=== PATIENT | female | born 1975 | race Caucasian/White ===

== ENCOUNTER 2016-06-11 15:08 | Inpatient (IN) | payer MEDICARE, OTHER ==
[~2016-06-11] VITALS: Ht 177.8 cm; Wt 126.6 kg
[2016-06-11] MEDS ORDERED: OXYC-522 PO (15:15)
[2016-06-11] MEDS ORDERED: PANT40TA25 PO (15:15)
[2016-06-11] MEDS ORDERED: VENL-53 PO (15:15)
[2016-06-11] MEDS ORDERED: LEVO100T4 PO (15:15)
[2016-06-11] MEDS ORDERED: SULF1TAB42 PO (15:18)
[2016-06-11] MEDS ORDERED: FURO40 PO (15:18)
[2016-06-11] MEDS ORDERED: NAPR375T4 PO (15:18)
[2016-06-11] MEDS ORDERED: FERR325T40 PO (15:18)
[2016-06-11 16:03] LABS: EOSINOPHILS % (AUTO) 5.5 % (1.0-6.0); HEMATOCRIT 36.2 % (36-46); HEMOGLOBIN 11.5 g/dL (12.0-16.0); LYMPHOCYTES # (AUTO) 0.9 K/uL (1.0-4.8); LYMPHOCYTES % (AUTO) 10.5 % (22.0-44.0); MEAN CORPUSCULAR HEMOGLOBIN 26.4 pg (26.0-34.0); MEAN CORPUSCULAR HGB CONC 31.6 G/dL (31.0-37.0); MEAN CORPUSCULAR VOLUME 84 fL (80-100); MONOCYTES # (AUTO) 0.5 K/uL (0.1-1.0); PLATELET COUNT (AUTO) 319 K/uL (150-450); RED BLOOD CELL COUNT(AUTO) 4.33 MIL/uL (4.00-5.20); RED CELL DISTRIBUTION WIDTH 16.5 % (11.5-14.5)
[2016-06-11 16:15] LABS: CALCIUM, TOTAL 8.6 mg/dL (8.8-10.5); CREATININE 1.06 mg/dL (0.60-1.30); POTASSIUM 4.3 mmol/L (3.5-5.1)
[2016-06-11 16:17] LABS: BILIRUBIN,TOTAL 0.2 mg/dL (0.1-1.0); TOTAL PROTEIN, SERUM 8.1 g/dL (6.4-8.2)
[2016-06-11] MEDS ORDERED: ACETAMINOPHEN 325 MG TABLET PO PRN ×2 (19:15)
[2016-06-11] MEDS ORDERED: ONDANSETRON HCL 4 MG/2 ML VIAL IVP ONE (19:15)
[2016-06-11] MEDS ORDERED: ONDANSETRON HCL 4 MG/2 ML VIAL PO PRN (19:15)
[2016-06-11] MEDS ORDERED: BISACODYL 10 MG RECTAL RECTAL SUPPOSITORY PR PRN (19:15)
[2016-06-11] MEDS ORDERED: ZOLPIDEM TARTRATE 5 MG TABLET PO PRN (19:15)
[2016-06-11] MEDS ORDERED: ONDANSETRON HCL 4 MG/2 ML VIAL IVP PRN (19:15)
[2016-06-11] MEDS ORDERED: 0.9% SODIUM CHLORIDE 10 ML SYRINGE IVP PRN (19:15)
[2016-06-11] MEDS ORDERED: VANCOMYCIN HCL 1 GM/D5% WATER 200 ML IV ONE (19:15)
[2016-06-11] MEDS ORDERED: MORPHINE SULFATE 4 MG/ML SYRINGE IVP ONE (19:15)
[2016-06-11] MEDS ORDERED: OxyCODONE HCL/ACETAMINOPHEN 10-325 MG TABLET PO PRN (19:30)
[2016-06-11] MEDS ORDERED: ONDANSETRON HCL 8 MG in DEXTROSE 5%-WATER 50 ML IV PRN (20:15)
[2016-06-11] MEDS ORDERED: SODIUM CHLORIDE 0.9% 250 ML IV ONE (20:30)
[2016-06-11 20:36] VITALS: BP 119/58
[2016-06-11] MEDS: FUROSEMIDE 40 MG TABLET PO SCH (21:22)
[2016-06-11] MEDS: DOCUSATE SODIUM 250 MG CAPSULE PO SCH (21:22)
[2016-06-11] MEDS ORDERED: VANCOMYCIN HCL 500 MG in DEXTROSE 5%-WATER 100 ML IV ONE (22:00)
[2016-06-11] MEDS: MORPHINE SULFATE 2 MG/ML SYRINGE IVP PRN (22:40)
[2016-06-11 23:36] VITALS: BP 105/58
[2016-06-12] MEDS: OxyCODONE HCL/ACETAMINOPHEN 5-325 MG TABLET PO PRN ×2 (01:37→05:45)
[2016-06-12 04:45] VITALS: BP 124/70
[2016-06-12] MEDS: LEVOTHYROXINE SODIUM 100 MCG TABLET PO SCH (05:45)
[2016-06-12 07:27] VITALS: BP 113/55
[2016-06-12] MEDS: VENLAFAXINE HCL 37.5 MG TABLET PO SCH (08:21)
[2016-06-12] MEDS: PANTOPRAZOLE SODIUM 40 MG DR TABLET PO SCH (08:21)
[2016-06-12] MEDS: FUROSEMIDE 40 MG TABLET PO SCH ×2 (08:21→20:00)
[2016-06-12] MEDS: DOCUSATE SODIUM 250 MG CAPSULE PO SCH ×2 (08:21→20:00)
[2016-06-12] MEDS: VANCOMYCIN HCL 1.25 GM in DEXTROSE 5%-WATER 250 ML IV SCH ×2 (08:21→20:00)
[2016-06-12] MEDS: MORPHINE SULFATE 2 MG/ML SYRINGE IVP PRN ×2 (08:49→17:24)
[2016-06-12 11:13] VITALS: BP 117/70
[2016-06-12 15:47] VITALS: BP 104/63
[2016-06-12 19:42] VITALS: BP 117/61
[2016-06-12 23:28] VITALS: BP 113/61
[2016-06-13] MEDS: OxyCODONE HCL/ACETAMINOPHEN 5-325 MG TABLET PO PRN ×5 (00:37→23:13)
[2016-06-13] MEDS: LEVOTHYROXINE SODIUM 100 MCG TABLET PO SCH (05:29)
[2016-06-13] MEDS: MORPHINE SULFATE 2 MG/ML SYRINGE IVP PRN (05:29)
[2016-06-13 05:37] VITALS: BP 118/64
[2016-06-13 07:00] LABS: CREATININE 1.03 mg/dL (0.60-1.30); POTASSIUM 3.9 mmol/L (3.5-5.1)
[2016-06-13 07:01] LABS: CALCIUM, TOTAL 8.3 mg/dL (8.8-10.5)
[2016-06-13 07:49] VITALS: BP 114/56
[2016-06-13] MEDS: VANCOMYCIN HCL 1.25 GM in DEXTROSE 5%-WATER 250 ML IV SCH ×2 (07:53→21:05)
[2016-06-13] MEDS: FUROSEMIDE 40 MG TABLET PO SCH ×2 (07:54→21:05)
[2016-06-13] MEDS: PANTOPRAZOLE SODIUM 40 MG DR TABLET PO SCH (07:54)
[2016-06-13] MEDS: DOCUSATE SODIUM 250 MG CAPSULE PO SCH ×2 (07:54→21:05)
[2016-06-13] MEDS: VENLAFAXINE HCL 37.5 MG TABLET PO SCH (07:54)
[2016-06-13 11:28] VITALS: BP 114/52
[2016-06-13 15:39] VITALS: BP 101/53
[2016-06-13 19:54] VITALS: BP 112/66
[2016-06-13] MEDS ORDERED: 0.9% SODIUM CHLORIDE 10 ML SYRINGE IVP PRN (23:00)
[2016-06-13 23:20] VITALS: BP 102/56
[2016-06-14 04:48] VITALS: BP 100/60
[2016-06-14] MEDS: OxyCODONE HCL/ACETAMINOPHEN 5-325 MG TABLET PO PRN ×2 (05:19→17:25)
[2016-06-14] MEDS: LEVOTHYROXINE SODIUM 100 MCG TABLET PO SCH (05:19)
[2016-06-14 07:44] VITALS: BP 113/51
[2016-06-14 08:20] LABS: CALCIUM, TOTAL 8.6 mg/dL (8.8-10.5); CREATININE 1.05 mg/dL (0.60-1.30)
[2016-06-14] MEDS: FUROSEMIDE 40 MG TABLET PO SCH (08:54)
[2016-06-14] MEDS: PANTOPRAZOLE SODIUM 40 MG DR TABLET PO SCH (08:54)
[2016-06-14] MEDS: DOCUSATE SODIUM 250 MG CAPSULE PO SCH (08:54)
[2016-06-14] MEDS: VENLAFAXINE HCL 37.5 MG TABLET PO SCH (08:54)
[2016-06-14] MEDS: VANCOMYCIN HCL 1.25 GM in DEXTROSE 5%-WATER 250 ML IV SCH (08:57)
[2016-06-14] MEDS ORDERED: VITAMINS A & D 60 GM OINTMENT TP SCH (09:00)
[2016-06-14 11:49] VITALS: BP 116/67
[2016-06-14] MEDS: MORPHINE SULFATE 2 MG/ML SYRINGE IVP PRN (14:28)
[2016-06-14 16:24] VITALS: BP 126/69
[2016-06-14] MEDS ORDERED: DOCU250C91 PO (17:36)
[2016-06-14] MEDS ORDERED: VANC1.252 IV (17:38)
[2016-06-14] MEDS ORDERED: [UNRECOGNIZED DRUG - CODE] TP (17:39)
[2016-06-14] MEDS ORDERED: ACET-784 PO (17:40)
[2016-06-14] MEDS ORDERED: BISA10S PR (17:41)
== END 2016-06-14 17:55 | DRG 603 ==
LOC: EMS 15:10 → 6N 19:45
PROVIDERS: ADMIT Internal Medicine; ATTEND Internal Medicine
DX: L03.116 Cellulitis of left lower limb (principal); E44.1 Mild protein-calorie malnutrition; L97.929 Non-pressure chronic ulcer of unspecified part of left lower leg with unspecified severity; L97.919 Non-pressure chronic ulcer of unspecified part of right lower leg with unspecified severity; Z68.41 Body mass index [BMI] 40.0-44.9, adult; L03.115 Cellulitis of right lower limb; B95.62 Methicillin resistant Staphylococcus aureus infection as the cause of diseases classified elsewhere; K74.60 Unspecified cirrhosis of liver; F32.9 Major depressive disorder, single episode, unspecified; I10 Essential (primary) hypertension; E03.9 Hypothyroidism, unspecified; E66.9 Obesity, unspecified; J45.909 Unspecified asthma, uncomplicated; D25.9 Leiomyoma of uterus, unspecified; K21.9 Gastro-esophageal reflux disease without esophagitis; I89.0 Lymphedema, not elsewhere classified; N20.9 Urinary calculus, unspecified; Z86.14 Personal history of Methicillin resistant Staphylococcus aureus infection; Z79.2 Long term (current) use of antibiotics; Z79.891 Long term (current) use of opiate analgesic; Z79.899 Other long term (current) drug therapy; Z83.3 Family history of diabetes mellitus; Z82.49 Family history of ischemic heart disease and other diseases of the circulatory system
CPT/HCPCS: 87081; 93970; 96365; 96375; 99285; J2270; J2405; J3370; J7050; J7060

== ENCOUNTER → 2017-01-30 | Outpatient (CLI) | payer MEDICARE, OTHER ==
[~2017-01-30] VITALS: Ht 177.8 cm; Wt 126.6 kg
[~2017-01-30] MED LIST: ACET-784 PO; ASCO500 PO; BACTDSB PO; CEPH500 PO; DOCU250C91 PO; FURO40 PO; LEVO100T4 PO; LEVO112T7 PO; LEVO250 PO; LIDOCAINE HCL 4% 50 ML SOLUTION TP ONE; NAPR-1193 PO; OXYC-522 PO; PANT40TA25 PO; POTA8TAB4 PO; SULF1TAB42 PO; VENL-53 PO; ZINC50TA2 PO; [UNRECOGNIZED DRUG - CODE] TP
[2017-01-30 10:47] VITALS: BP 139/72
== END | disposition home or self-care (01) ==
LOC: HBOWC 10:19
PROVIDERS: ATTEND Surgery Plastic and Reconstructive Surgery
DX: I87.2 Venous insufficiency (chronic) (peripheral) (principal); L97.821 Non-pressure chronic ulcer of other part of left lower leg limited to breakdown of skin; I89.0 Lymphedema, not elsewhere classified; E66.01 Morbid (severe) obesity due to excess calories; K21.9 Gastro-esophageal reflux disease without esophagitis; E03.9 Hypothyroidism, unspecified; Z86.14 Personal history of Methicillin resistant Staphylococcus aureus infection; Z68.42 Body mass index [BMI] 45.0-49.9, adult

== ENCOUNTER → 2017-02-06 | Outpatient (CLI) | payer MEDICARE, OTHER ==
[~2017-02-06] MED LIST changes: -DOCU250C91 PO; -LEVO100T4 PO; -LEVO250 PO; -LIDOCAINE HCL 4% 50 ML SOLUTION TP ONE; -OXYC-522 PO; -SULF1TAB42 PO; -[UNRECOGNIZED DRUG - CODE] TP
[2017-02-06 11:00] VITALS: BP 140/62
== END | disposition home or self-care (01) ==
LOC: HBOWC 10:52
PROVIDERS: ATTEND Surgery Plastic and Reconstructive Surgery
DX: I87.2 Venous insufficiency (chronic) (peripheral) (principal); L97.821 Non-pressure chronic ulcer of other part of left lower leg limited to breakdown of skin; I89.0 Lymphedema, not elsewhere classified; K21.9 Gastro-esophageal reflux disease without esophagitis; E03.8 Other specified hypothyroidism; I11.9 Hypertensive heart disease without heart failure; E66.01 Morbid (severe) obesity due to excess calories; J45.909 Unspecified asthma, uncomplicated; G89.4 Chronic pain syndrome; Z68.42 Body mass index [BMI] 45.0-49.9, adult
CPT/HCPCS: 97597

== ENCOUNTER → 2017-02-13 | Outpatient (CLI) | payer MEDICARE, OTHER ==
[~2017-02-13] MED LIST changes: +LIDOCAINE HCL 2% 5 ML JELLY TP ONE
[2017-02-13 11:30] VITALS: BP 141/71
== END | disposition home or self-care (01) ==
LOC: HBOWC 09:49
PROVIDERS: ATTEND Nurse Practitioner Adult Health
DX: I87.2 Venous insufficiency (chronic) (peripheral) (principal); L97.821 Non-pressure chronic ulcer of other part of left lower leg limited to breakdown of skin; I89.0 Lymphedema, not elsewhere classified; K21.9 Gastro-esophageal reflux disease without esophagitis; G89.29 Other chronic pain; I11.9 Hypertensive heart disease without heart failure; E03.8 Other specified hypothyroidism; J45.909 Unspecified asthma, uncomplicated; E66.01 Morbid (severe) obesity due to excess calories; Z68.42 Body mass index [BMI] 45.0-49.9, adult
CPT/HCPCS: 87070; 87077; 87186; 87205; G0463

== ENCOUNTER → 2017-02-22 | Outpatient (CLI) | payer MEDICARE, OTHER ==
[~2017-02-22] MED LIST changes: -LIDOCAINE HCL 2% 5 ML JELLY TP ONE
[2017-02-22 11:03] VITALS: BP 145/74
== END | disposition home or self-care (01) ==
LOC: HBOWC 10:29
PROVIDERS: ATTEND Internal Medicine
DX: S81.802D Unspecified open wound, left lower leg, subsequent encounter (principal); S81.801D Unspecified open wound, right lower leg, subsequent encounter; I87.2 Venous insufficiency (chronic) (peripheral); I89.0 Lymphedema, not elsewhere classified; K21.9 Gastro-esophageal reflux disease without esophagitis; I11.9 Hypertensive heart disease without heart failure; E03.8 Other specified hypothyroidism; J45.909 Unspecified asthma, uncomplicated; G89.4 Chronic pain syndrome; E66.01 Morbid (severe) obesity due to excess calories; Z68.42 Body mass index [BMI] 45.0-49.9, adult; X58.XXXD Exposure to other specified factors, subsequent encounter
CPT/HCPCS: 97597

== ENCOUNTER → 2017-03-01 | Outpatient (CLI) | payer MEDICARE, OTHER ==
[~2017-03-01] MED LIST changes: +LIDOCAINE HCL 2% 5 ML JELLY TP ONE
[2017-03-01 10:40] VITALS: BP 112/61
== END | disposition home or self-care (01) ==
LOC: HBOWC 09:28
PROVIDERS: ATTEND Internal Medicine
DX: S81.802D Unspecified open wound, left lower leg, subsequent encounter (principal); S81.801D Unspecified open wound, right lower leg, subsequent encounter; I87.2 Venous insufficiency (chronic) (peripheral); K21.9 Gastro-esophageal reflux disease without esophagitis; J45.909 Unspecified asthma, uncomplicated; E03.9 Hypothyroidism, unspecified; I89.0 Lymphedema, not elsewhere classified; E66.01 Morbid (severe) obesity due to excess calories; Z68.42 Body mass index [BMI] 45.0-49.9, adult; X58.XXXD Exposure to other specified factors, subsequent encounter
CPT/HCPCS: 97597

== ENCOUNTER → 2017-03-08 | Outpatient (CLI) | payer MEDICARE, OTHER ==
[2017-03-08 09:16] VITALS: BP 132/64
== END | disposition home or self-care (01) ==
LOC: HBOWC 08:55
PROVIDERS: ATTEND Internal Medicine
DX: S81.801D Unspecified open wound, right lower leg, subsequent encounter (principal); S81.802D Unspecified open wound, left lower leg, subsequent encounter; I87.2 Venous insufficiency (chronic) (peripheral); I89.0 Lymphedema, not elsewhere classified; K21.9 Gastro-esophageal reflux disease without esophagitis; E66.01 Morbid (severe) obesity due to excess calories; J45.909 Unspecified asthma, uncomplicated; I11.9 Hypertensive heart disease without heart failure; E03.8 Other specified hypothyroidism; G89.4 Chronic pain syndrome; Z68.42 Body mass index [BMI] 45.0-49.9, adult; Z86.14 Personal history of Methicillin resistant Staphylococcus aureus infection; X58.XXXD Exposure to other specified factors, subsequent encounter
CPT/HCPCS: 97597

== ENCOUNTER → 2017-03-29 | Outpatient (CLI) | payer MEDICARE, OTHER ==
[~2017-03-29] MED LIST changes: -LIDOCAINE HCL 2% 5 ML JELLY TP ONE; +LIDOCAINE HCL 4% 50 ML SOLUTION TP ONE
[2017-03-29 08:26] VITALS: BP 137/69
== END | disposition home or self-care (01) ==
LOC: HBOWC 07:34
PROVIDERS: ATTEND Internal Medicine
DX: S81.802D Unspecified open wound, left lower leg, subsequent encounter (principal); S81.801D Unspecified open wound, right lower leg, subsequent encounter; I87.2 Venous insufficiency (chronic) (peripheral); E66.01 Morbid (severe) obesity due to excess calories; K21.9 Gastro-esophageal reflux disease without esophagitis; I89.0 Lymphedema, not elsewhere classified; E03.8 Other specified hypothyroidism; J45.909 Unspecified asthma, uncomplicated; Z68.42 Body mass index [BMI] 45.0-49.9, adult; X58.XXXD Exposure to other specified factors, subsequent encounter
CPT/HCPCS: 87070; 87077; 87147; 87186; 87205; G0463

== ENCOUNTER → 2017-04-05 | Outpatient (CLI) | payer MEDICARE, OTHER ==
[~2017-04-05] MED LIST changes: +LIDOCAINE HCL 2% 5 ML JELLY TP ONE; -LIDOCAINE HCL 4% 50 ML SOLUTION TP ONE
[2017-04-05 09:08] VITALS: BP 123/64
== END | disposition home or self-care (01) ==
LOC: HBOWC 08:25
PROVIDERS: ATTEND Internal Medicine
DX: S81.801D Unspecified open wound, right lower leg, subsequent encounter (principal); S81.802D Unspecified open wound, left lower leg, subsequent encounter; I87.2 Venous insufficiency (chronic) (peripheral); I89.0 Lymphedema, not elsewhere classified; K21.9 Gastro-esophageal reflux disease without esophagitis; I11.0 Hypertensive heart disease with heart failure; I50.9 Heart failure, unspecified; E03.9 Hypothyroidism, unspecified; E66.01 Morbid (severe) obesity due to excess calories; J45.909 Unspecified asthma, uncomplicated; E03.8 Other specified hypothyroidism; Z68.42 Body mass index [BMI] 45.0-49.9, adult; X58.XXXD Exposure to other specified factors, subsequent encounter
CPT/HCPCS: 97597

== ENCOUNTER → 2017-04-12 | Outpatient (CLI) | payer MEDICARE, OTHER ==
[~2017-04-12] MED LIST changes: -LIDOCAINE HCL 2% 5 ML JELLY TP ONE
[2017-04-12 08:48] VITALS: BP 121/60
== END | disposition home or self-care (01) ==
LOC: HBOWC 08:17
PROVIDERS: ATTEND Internal Medicine
DX: S81.802D Unspecified open wound, left lower leg, subsequent encounter (principal); S81.801D Unspecified open wound, right lower leg, subsequent encounter; E66.01 Morbid (severe) obesity due to excess calories; I89.0 Lymphedema, not elsewhere classified; K21.9 Gastro-esophageal reflux disease without esophagitis; J45.909 Unspecified asthma, uncomplicated; E03.9 Hypothyroidism, unspecified; I11.0 Hypertensive heart disease with heart failure; I50.9 Heart failure, unspecified; I87.2 Venous insufficiency (chronic) (peripheral); Z68.42 Body mass index [BMI] 45.0-49.9, adult; X58.XXXD Exposure to other specified factors, subsequent encounter

== ENCOUNTER → 2017-04-26 | Outpatient (CLI) | payer MEDICARE, OTHER ==
[2017-04-26 10:14] VITALS: BP 145/62
== END | disposition home or self-care (01) ==
LOC: HBOWC 08:38
PROVIDERS: ATTEND Internal Medicine
DX: S81.802D Unspecified open wound, left lower leg, subsequent encounter (principal); S81.801D Unspecified open wound, right lower leg, subsequent encounter; I87.2 Venous insufficiency (chronic) (peripheral); I11.0 Hypertensive heart disease with heart failure; I50.9 Heart failure, unspecified; K21.9 Gastro-esophageal reflux disease without esophagitis; E03.9 Hypothyroidism, unspecified; I89.0 Lymphedema, not elsewhere classified; E66.01 Morbid (severe) obesity due to excess calories; J45.909 Unspecified asthma, uncomplicated; Z68.42 Body mass index [BMI] 45.0-49.9, adult; X58.XXXD Exposure to other specified factors, subsequent encounter

== ENCOUNTER → 2017-05-10 | Outpatient (CLI) | payer MEDICARE, OTHER ==
[2017-05-10 09:06] VITALS: BP 140/64
== END | disposition home or self-care (01) ==
LOC: HBOWC 08:36
PROVIDERS: ATTEND Internal Medicine
DX: S81.802D Unspecified open wound, left lower leg, subsequent encounter (principal); S81.801D Unspecified open wound, right lower leg, subsequent encounter; E66.01 Morbid (severe) obesity due to excess calories; K21.9 Gastro-esophageal reflux disease without esophagitis; I11.0 Hypertensive heart disease with heart failure; I50.9 Heart failure, unspecified; E03.9 Hypothyroidism, unspecified; J45.909 Unspecified asthma, uncomplicated; I87.2 Venous insufficiency (chronic) (peripheral); Z68.42 Body mass index [BMI] 45.0-49.9, adult; X58.XXXD Exposure to other specified factors, subsequent encounter

== ENCOUNTER → 2017-05-24 | Outpatient (CLI) | payer MEDICARE, OTHER ==
[2017-05-24 08:41] VITALS: BP 141/68
== END | disposition home or self-care (01) ==
LOC: HBOWC 08:07
PROVIDERS: ATTEND Internal Medicine
DX: S81.801D Unspecified open wound, right lower leg, subsequent encounter (principal); S81.802D Unspecified open wound, left lower leg, subsequent encounter; I87.2 Venous insufficiency (chronic) (peripheral); I89.0 Lymphedema, not elsewhere classified; K21.9 Gastro-esophageal reflux disease without esophagitis; I11.0 Hypertensive heart disease with heart failure; I50.9 Heart failure, unspecified; E03.9 Hypothyroidism, unspecified; E66.01 Morbid (severe) obesity due to excess calories; J45.909 Unspecified asthma, uncomplicated; Z68.42 Body mass index [BMI] 45.0-49.9, adult; B95.62 Methicillin resistant Staphylococcus aureus infection as the cause of diseases classified elsewhere; X58.XXXD Exposure to other specified factors, subsequent encounter

== ENCOUNTER → 2017-08-29 | Outpatient (CLI) | payer MEDICARE, OTHER ==
[~2017-08-29] VITALS: Ht 165.1 cm; Wt 138.0 kg
[~2017-08-29] MED LIST changes: +FERR-89 PO; +GENTAMICIN SULFATE 0.1% 15 GM OINTMENT TP ONE; +LIDOCAINE HCL 4% 50 ML SOLUTION TP ONE
[2017-08-29 09:03] VITALS: BP 144/73
== END | disposition home or self-care (01) ==
LOC: HBOWC 08:35
PROVIDERS: ATTEND Emergency Medicine
DX: S81.801D Unspecified open wound, right lower leg, subsequent encounter (principal); S81.802D Unspecified open wound, left lower leg, subsequent encounter; I89.0 Lymphedema, not elsewhere classified; E66.01 Morbid (severe) obesity due to excess calories; K21.9 Gastro-esophageal reflux disease without esophagitis; I11.0 Hypertensive heart disease with heart failure; I50.9 Heart failure, unspecified; J45.909 Unspecified asthma, uncomplicated; I87.2 Venous insufficiency (chronic) (peripheral); E03.8 Other specified hypothyroidism; G89.4 Chronic pain syndrome; Z68.42 Body mass index [BMI] 45.0-49.9, adult; X58.XXXD Exposure to other specified factors, subsequent encounter
CPT/HCPCS: 11042; 87070; 87205

== ENCOUNTER → 2017-09-06 | Outpatient (CLI) | payer MEDICARE, OTHER ==
[~2017-09-06] MED LIST changes: -BACTDSB PO; -CEPH500 PO; -GENTAMICIN SULFATE 0.1% 15 GM OINTMENT TP ONE; -LIDOCAINE HCL 4% 50 ML SOLUTION TP ONE
[2017-09-06 09:27] VITALS: BP 139/70
== END | disposition home or self-care (01) ==
LOC: HBOWC 08:58
PROVIDERS: ATTEND Internal Medicine
DX: S81.801D Unspecified open wound, right lower leg, subsequent encounter (principal); E66.01 Morbid (severe) obesity due to excess calories; E03.9 Hypothyroidism, unspecified; I89.0 Lymphedema, not elsewhere classified; K21.9 Gastro-esophageal reflux disease without esophagitis; G89.4 Chronic pain syndrome; I11.0 Hypertensive heart disease with heart failure; I50.9 Heart failure, unspecified; E03.8 Other specified hypothyroidism; J45.909 Unspecified asthma, uncomplicated; I87.2 Venous insufficiency (chronic) (peripheral); Z68.42 Body mass index [BMI] 45.0-49.9, adult; X58.XXXD Exposure to other specified factors, subsequent encounter
CPT/HCPCS: 11042

== ENCOUNTER → 2017-09-13 | Outpatient (CLI) | payer MEDICARE, OTHER ==
[2017-09-13 08:41] VITALS: BP 141/66
== END | disposition home or self-care (01) ==
LOC: HBOWC 08:18
PROVIDERS: ATTEND Internal Medicine
DX: S81.801D Unspecified open wound, right lower leg, subsequent encounter (principal); E66.01 Morbid (severe) obesity due to excess calories; I89.0 Lymphedema, not elsewhere classified; I87.8 Other specified disorders of veins; K21.9 Gastro-esophageal reflux disease without esophagitis; G89.4 Chronic pain syndrome; I11.0 Hypertensive heart disease with heart failure; I50.9 Heart failure, unspecified; J45.909 Unspecified asthma, uncomplicated; E03.8 Other specified hypothyroidism; I87.2 Venous insufficiency (chronic) (peripheral); Z68.42 Body mass index [BMI] 45.0-49.9, adult; X58.XXXD Exposure to other specified factors, subsequent encounter
CPT/HCPCS: 11042

== ENCOUNTER → 2017-09-20 | Outpatient (CLI) | payer MEDICARE, OTHER ==
[2017-09-20 08:46] VITALS: BP 138/72
== END | disposition home or self-care (01) ==
LOC: HBOWC 08:23
PROVIDERS: ATTEND Internal Medicine
DX: S81.801D Unspecified open wound, right lower leg, subsequent encounter (principal); E66.01 Morbid (severe) obesity due to excess calories; I89.0 Lymphedema, not elsewhere classified; I87.8 Other specified disorders of veins; K21.9 Gastro-esophageal reflux disease without esophagitis; G89.4 Chronic pain syndrome; I11.0 Hypertensive heart disease with heart failure; I50.9 Heart failure, unspecified; J45.909 Unspecified asthma, uncomplicated; E03.8 Other specified hypothyroidism; I87.2 Venous insufficiency (chronic) (peripheral); Z68.42 Body mass index [BMI] 45.0-49.9, adult; X58.XXXD Exposure to other specified factors, subsequent encounter

== ENCOUNTER → 2017-10-04 | Outpatient (CLI) | payer MEDICARE, OTHER ==
[2017-10-04 08:42] VITALS: BP 141/68
== END | disposition home or self-care (01) ==
LOC: HBOWC 08:19
PROVIDERS: ATTEND Internal Medicine
DX: S81.801D Unspecified open wound, right lower leg, subsequent encounter (principal); E66.01 Morbid (severe) obesity due to excess calories; I89.0 Lymphedema, not elsewhere classified; I87.8 Other specified disorders of veins; K21.9 Gastro-esophageal reflux disease without esophagitis; G89.4 Chronic pain syndrome; I11.0 Hypertensive heart disease with heart failure; I50.9 Heart failure, unspecified; J45.909 Unspecified asthma, uncomplicated; E03.8 Other specified hypothyroidism; I87.2 Venous insufficiency (chronic) (peripheral); Z68.42 Body mass index [BMI] 45.0-49.9, adult; X58.XXXD Exposure to other specified factors, subsequent encounter

== ENCOUNTER → 2018-03-21 | Outpatient (CLI) | payer MEDICARE, OTHER ==
[~2018-03-21] VITALS: Ht 165.1 cm; Wt 132.0 kg
[~2018-03-21] MED LIST changes: +FAMO20 PO; +LEVO150 PO; +LIDOCAINE 4% 50 ML SOLUTION TP ONE; +NAPR-58 PO; +SULF1TAB42 PO
[2018-03-21 09:59] VITALS: BP 128/74
== END | disposition home or self-care (01) ==
LOC: HBOWC 09:19
PROVIDERS: ATTEND Internal Medicine
DX: S81.802D Unspecified open wound, left lower leg, subsequent encounter (principal); S81.801D Unspecified open wound, right lower leg, subsequent encounter; I89.0 Lymphedema, not elsewhere classified; E03.9 Hypothyroidism, unspecified; K21.9 Gastro-esophageal reflux disease without esophagitis; E66.01 Morbid (severe) obesity due to excess calories; I10 Essential (primary) hypertension; X58.XXXD Exposure to other specified factors, subsequent encounter
CPT/HCPCS: 11042; 11045

== ENCOUNTER → 2018-03-30 | Outpatient (CLI) | payer MEDICARE, OTHER ==
[~2018-03-30] MED LIST changes: -ACET-784 PO; -LEVO112T7 PO; -NAPR-1193 PO; -PANT40TA25 PO
[2018-03-30 08:30] VITALS: BP 122/61
== END | disposition home or self-care (01) ==
LOC: HBOWC 08:18
PROVIDERS: ATTEND Podiatrist
DX: S81.802D Unspecified open wound, left lower leg, subsequent encounter (principal); S81.801D Unspecified open wound, right lower leg, subsequent encounter; I10 Essential (primary) hypertension; K21.9 Gastro-esophageal reflux disease without esophagitis; E03.9 Hypothyroidism, unspecified; I89.0 Lymphedema, not elsewhere classified; E66.01 Morbid (severe) obesity due to excess calories; X58.XXXD Exposure to other specified factors, subsequent encounter
CPT/HCPCS: 87070; G0463

== ENCOUNTER → 2018-04-18 | Outpatient (CLI) | payer MEDICARE, OTHER ==
[2018-04-18 10:05] VITALS: BP 139/66
== END | disposition home or self-care (01) ==
LOC: HBOWC 09:10
PROVIDERS: ATTEND Internal Medicine
DX: S81.802D Unspecified open wound, left lower leg, subsequent encounter (principal); S81.801D Unspecified open wound, right lower leg, subsequent encounter; I89.0 Lymphedema, not elsewhere classified; E03.9 Hypothyroidism, unspecified; K21.9 Gastro-esophageal reflux disease without esophagitis; E66.01 Morbid (severe) obesity due to excess calories; I10 Essential (primary) hypertension; X58.XXXD Exposure to other specified factors, subsequent encounter
CPT/HCPCS: 11042; 11045

== ENCOUNTER → 2018-05-02 | Outpatient (CLI) | payer MEDICARE, OTHER ==
[~2018-05-02] MED LIST changes: -LIDOCAINE 4% 50 ML SOLUTION TP ONE
[2018-05-02 08:49] VITALS: BP 146/79
== END | disposition home or self-care (01) ==
LOC: HBOWC 08:28
PROVIDERS: ATTEND Internal Medicine
DX: S81.802D Unspecified open wound, left lower leg, subsequent encounter (principal); S81.801D Unspecified open wound, right lower leg, subsequent encounter; I89.0 Lymphedema, not elsewhere classified; I83.93 Asymptomatic varicose veins of bilateral lower extremities; E03.9 Hypothyroidism, unspecified; K21.9 Gastro-esophageal reflux disease without esophagitis; I10 Essential (primary) hypertension; E66.01 Morbid (severe) obesity due to excess calories; X58.XXXD Exposure to other specified factors, subsequent encounter; I87.2 Venous insufficiency (chronic) (peripheral)
CPT/HCPCS: 11042; 11045; 87070

== ENCOUNTER → 2018-05-23 | Outpatient (CLI) | payer MEDICARE, OTHER ==
[2018-05-23 09:31] VITALS: BP 137/69
== END | disposition home or self-care (01) ==
LOC: HBOWC 08:30
PROVIDERS: ATTEND Internal Medicine
DX: S81.802D Unspecified open wound, left lower leg, subsequent encounter (principal); S81.801D Unspecified open wound, right lower leg, subsequent encounter; I89.0 Lymphedema, not elsewhere classified; I87.2 Venous insufficiency (chronic) (peripheral); I83.93 Asymptomatic varicose veins of bilateral lower extremities; E03.9 Hypothyroidism, unspecified; K21.9 Gastro-esophageal reflux disease without esophagitis; I10 Essential (primary) hypertension; E66.01 Morbid (severe) obesity due to excess calories; X58.XXXD Exposure to other specified factors, subsequent encounter
CPT/HCPCS: 11042; 11045

== ENCOUNTER → 2018-05-28 | Outpatient (CLI) | payer MEDICARE, OTHER | END | disposition home or self-care (01) | LOC: RADPV 10:43 | PROVIDERS: ATTEND Internal Medicine | DX: L97.929 Non-pressure chronic ulcer of unspecified part of left lower leg with unspecified severity (principal); L97.919 Non-pressure chronic ulcer of unspecified part of right lower leg with unspecified severity; E66.01 Morbid (severe) obesity due to excess calories; I87.8 Other specified disorders of veins; Z68.42 Body mass index [BMI] 45.0-49.9, adult ==

== ENCOUNTER → 2018-05-29 | Outpatient (CLI) | payer MEDICARE, OTHER ==
[2018-05-29 09:00] VITALS: BP 108/58
== END | disposition home or self-care (01) ==
LOC: HBOWC 08:28
PROVIDERS: ATTEND Emergency Medicine
DX: S81.801D Unspecified open wound, right lower leg, subsequent encounter (principal); S81.802D Unspecified open wound, left lower leg, subsequent encounter; I89.0 Lymphedema, not elsewhere classified; I83.893 Varicose veins of bilateral lower extremities with other complications; I87.2 Venous insufficiency (chronic) (peripheral); E03.9 Hypothyroidism, unspecified; K21.9 Gastro-esophageal reflux disease without esophagitis; I10 Essential (primary) hypertension; E66.01 Morbid (severe) obesity due to excess calories; Z68.42 Body mass index [BMI] 45.0-49.9, adult; X58.XXXD Exposure to other specified factors, subsequent encounter
CPT/HCPCS: 11042; 11045

== ENCOUNTER → 2018-06-06 | Outpatient (CLI) | payer MEDICARE, OTHER ==
[~2018-06-06] MED LIST changes: +LIDOCAINE 4% 50 ML SOLUTION TP ONE
[2018-06-06 09:48] VITALS: BP 155/71
== END | disposition home or self-care (01) ==
LOC: HBOWC 09:18
PROVIDERS: ATTEND Internal Medicine
DX: S81.802D Unspecified open wound, left lower leg, subsequent encounter (principal); S81.801D Unspecified open wound, right lower leg, subsequent encounter; I89.0 Lymphedema, not elsewhere classified; I83.893 Varicose veins of bilateral lower extremities with other complications; I87.2 Venous insufficiency (chronic) (peripheral); E03.9 Hypothyroidism, unspecified; I10 Essential (primary) hypertension; K21.9 Gastro-esophageal reflux disease without esophagitis; E66.01 Morbid (severe) obesity due to excess calories; Z68.42 Body mass index [BMI] 45.0-49.9, adult; X58.XXXD Exposure to other specified factors, subsequent encounter
CPT/HCPCS: 97597; 97598

== ENCOUNTER → 2018-06-13 | Outpatient (CLI) | payer MEDICARE, OTHER ==
[~2018-06-13] MED LIST changes: -LIDOCAINE 4% 50 ML SOLUTION TP ONE
[2018-06-13 08:28] VITALS: BP 141/67
== END | disposition home or self-care (01) ==
LOC: HBOWC 08:15
PROVIDERS: ATTEND Internal Medicine
DX: S81.802D Unspecified open wound, left lower leg, subsequent encounter (principal); S81.801D Unspecified open wound, right lower leg, subsequent encounter; I89.0 Lymphedema, not elsewhere classified; I83.893 Varicose veins of bilateral lower extremities with other complications; I87.2 Venous insufficiency (chronic) (peripheral); E03.9 Hypothyroidism, unspecified; I10 Essential (primary) hypertension; K21.9 Gastro-esophageal reflux disease without esophagitis; E66.01 Morbid (severe) obesity due to excess calories; Z68.42 Body mass index [BMI] 45.0-49.9, adult; X58.XXXD Exposure to other specified factors, subsequent encounter
CPT/HCPCS: 97597; 97598

== ENCOUNTER → 2018-06-19 | Outpatient (CLI) | payer MEDICARE, OTHER ==
[2018-06-19 08:56] VITALS: BP 129/80
== END | disposition home or self-care (01) ==
LOC: HBOWC 08:46
PROVIDERS: ATTEND Emergency Medicine
DX: S81.802D Unspecified open wound, left lower leg, subsequent encounter (principal); S81.801D Unspecified open wound, right lower leg, subsequent encounter; I89.0 Lymphedema, not elsewhere classified; I83.893 Varicose veins of bilateral lower extremities with other complications; I87.2 Venous insufficiency (chronic) (peripheral); E03.9 Hypothyroidism, unspecified; K21.9 Gastro-esophageal reflux disease without esophagitis; I10 Essential (primary) hypertension; E66.01 Morbid (severe) obesity due to excess calories; Z68.42 Body mass index [BMI] 45.0-49.9, adult; X58.XXXD Exposure to other specified factors, subsequent encounter
CPT/HCPCS: 11042; 11045; 87070

== ENCOUNTER → 2018-07-04 | Outpatient (CLI) | payer MEDICARE, OTHER ==
[2018-07-04 09:00] VITALS: BP 119/67
== END | disposition home or self-care (01) ==
LOC: HBOWC 09:16
PROVIDERS: ATTEND Internal Medicine
DX: S81.801D Unspecified open wound, right lower leg, subsequent encounter (principal); S81.802D Unspecified open wound, left lower leg, subsequent encounter; I83.893 Varicose veins of bilateral lower extremities with other complications; I89.0 Lymphedema, not elsewhere classified; E03.9 Hypothyroidism, unspecified; I87.2 Venous insufficiency (chronic) (peripheral); I10 Essential (primary) hypertension; K21.9 Gastro-esophageal reflux disease without esophagitis; E66.01 Morbid (severe) obesity due to excess calories; Z68.42 Body mass index [BMI] 45.0-49.9, adult; X58.XXXD Exposure to other specified factors, subsequent encounter
CPT/HCPCS: 11042; 11045

== ENCOUNTER → 2018-07-11 | Outpatient (CLI) | payer MEDICARE, OTHER ==
[2018-07-11 08:48] VITALS: BP 114/67
== END | disposition home or self-care (01) ==
LOC: HBOWC 08:24
PROVIDERS: ATTEND Internal Medicine
DX: S81.801D Unspecified open wound, right lower leg, subsequent encounter (principal); S81.802D Unspecified open wound, left lower leg, subsequent encounter; I89.0 Lymphedema, not elsewhere classified; I83.893 Varicose veins of bilateral lower extremities with other complications; I87.2 Venous insufficiency (chronic) (peripheral); E03.9 Hypothyroidism, unspecified; I10 Essential (primary) hypertension; K21.9 Gastro-esophageal reflux disease without esophagitis; E66.01 Morbid (severe) obesity due to excess calories; Z68.42 Body mass index [BMI] 45.0-49.9, adult; X58.XXXD Exposure to other specified factors, subsequent encounter
CPT/HCPCS: 11042; 11045

== ENCOUNTER → 2018-07-20 | Outpatient (CLI) | payer MEDICARE, OTHER ==
[2018-07-20 09:08] VITALS: BP 127/60
== END | disposition home or self-care (01) ==
LOC: HBOWC 08:29
PROVIDERS: ATTEND Podiatrist
DX: S81.801D Unspecified open wound, right lower leg, subsequent encounter (principal); S81.802D Unspecified open wound, left lower leg, subsequent encounter; I89.0 Lymphedema, not elsewhere classified; I83.893 Varicose veins of bilateral lower extremities with other complications; I87.2 Venous insufficiency (chronic) (peripheral); E03.9 Hypothyroidism, unspecified; I10 Essential (primary) hypertension; K21.9 Gastro-esophageal reflux disease without esophagitis; E66.01 Morbid (severe) obesity due to excess calories; Z68.42 Body mass index [BMI] 45.0-49.9, adult; X58.XXXD Exposure to other specified factors, subsequent encounter
CPT/HCPCS: 11042; 11045

== ENCOUNTER → 2018-07-25 | Outpatient (CLI) | payer MEDICARE, OTHER ==
[~2018-07-25] MED LIST changes: +LIDOCAINE 4% 50 ML SOLUTION ONE
[2018-07-25 10:14] VITALS: BP 137/60
== END | disposition home or self-care (01) ==
LOC: HBOWC 09:40
PROVIDERS: ATTEND Internal Medicine
DX: S81.801D Unspecified open wound, right lower leg, subsequent encounter (principal); S81.802D Unspecified open wound, left lower leg, subsequent encounter; I89.0 Lymphedema, not elsewhere classified; I83.893 Varicose veins of bilateral lower extremities with other complications; I87.2 Venous insufficiency (chronic) (peripheral); E03.9 Hypothyroidism, unspecified; I10 Essential (primary) hypertension; K21.9 Gastro-esophageal reflux disease without esophagitis; E66.01 Morbid (severe) obesity due to excess calories; Z68.42 Body mass index [BMI] 45.0-49.9, adult; X58.XXXD Exposure to other specified factors, subsequent encounter
CPT/HCPCS: 97597; 97598

== ENCOUNTER → 2018-08-01 | Outpatient (CLI) | payer MEDICARE, OTHER ==
[~2018-08-01] MED LIST changes: -LIDOCAINE 4% 50 ML SOLUTION ONE; +LIDOCAINE 4% 50 ML SOLUTION TP ONE
[2018-08-01 10:04] VITALS: BP 139/84
== END | disposition home or self-care (01) ==
LOC: HBOWC 09:23
PROVIDERS: ATTEND Internal Medicine
DX: S81.801D Unspecified open wound, right lower leg, subsequent encounter (principal); S81.802D Unspecified open wound, left lower leg, subsequent encounter; I89.0 Lymphedema, not elsewhere classified; I87.2 Venous insufficiency (chronic) (peripheral); I83.893 Varicose veins of bilateral lower extremities with other complications; E03.9 Hypothyroidism, unspecified; I10 Essential (primary) hypertension; K21.9 Gastro-esophageal reflux disease without esophagitis; E66.01 Morbid (severe) obesity due to excess calories; Z86.14 Personal history of Methicillin resistant Staphylococcus aureus infection; Z68.42 Body mass index [BMI] 45.0-49.9, adult; X58.XXXD Exposure to other specified factors, subsequent encounter
CPT/HCPCS: 97597; 97598

== ENCOUNTER → 2018-08-15 | Outpatient (CLI) | payer MEDICARE, OTHER ==
[2018-08-15 09:07] VITALS: BP 146/84
[2018-08-15 09:30] VITALS: BP 146/84
== END | disposition home or self-care (01) ==
LOC: HBOWC 08:37
PROVIDERS: ATTEND Internal Medicine
DX: S81.801D Unspecified open wound, right lower leg, subsequent encounter (principal); S81.802D Unspecified open wound, left lower leg, subsequent encounter; I89.0 Lymphedema, not elsewhere classified; I87.2 Venous insufficiency (chronic) (peripheral); I83.893 Varicose veins of bilateral lower extremities with other complications; E03.9 Hypothyroidism, unspecified; I10 Essential (primary) hypertension; K21.9 Gastro-esophageal reflux disease without esophagitis; E66.01 Morbid (severe) obesity due to excess calories; Z86.14 Personal history of Methicillin resistant Staphylococcus aureus infection; Z68.42 Body mass index [BMI] 45.0-49.9, adult; X58.XXXD Exposure to other specified factors, subsequent encounter
CPT/HCPCS: 97597; 97598

== ENCOUNTER → 2018-08-29 | Outpatient (CLI) | payer MEDICARE, OTHER ==
[2018-08-29 09:13] VITALS: BP 139/76
== END | disposition home or self-care (01) ==
LOC: HBOWC 08:42
PROVIDERS: ATTEND Internal Medicine
DX: S81.801D Unspecified open wound, right lower leg, subsequent encounter (principal); S81.802D Unspecified open wound, left lower leg, subsequent encounter; I89.0 Lymphedema, not elsewhere classified; I87.2 Venous insufficiency (chronic) (peripheral); I83.893 Varicose veins of bilateral lower extremities with other complications; E03.9 Hypothyroidism, unspecified; I10 Essential (primary) hypertension; K21.9 Gastro-esophageal reflux disease without esophagitis; E66.01 Morbid (severe) obesity due to excess calories; Z86.14 Personal history of Methicillin resistant Staphylococcus aureus infection; Z68.42 Body mass index [BMI] 45.0-49.9, adult; X58.XXXD Exposure to other specified factors, subsequent encounter
CPT/HCPCS: 97597; 97598

== ENCOUNTER 2019-06-08 11:55 | Emergency (ER) | payer MEDICARE, OTHER ==
[~2019-06-08] VITALS: Ht 162.6 cm; Wt 84.1 kg
[~2019-06-08 11:55] MED LIST changes: -LIDOCAINE 4% 50 ML SOLUTION TP ONE; +NAPR-1025 PO; -NAPR-58 PO
[2019-06-08] MEDS ORDERED: VENL-66 PO (12:38)
[2019-06-08] MEDS ORDERED: MORPHINE SULFATE 4 MG/ML SYRINGE IVP ONE (12:45)
[2019-06-08] MEDS ORDERED: AZITHROMYCIN 500 MG/NS 250 ML IV ONE (12:45)
[2019-06-08] MEDS ORDERED: ALBUTEROL SULFATE 5 MG/ML 20 ML NEB SOLN [BULK] NEB ONE (12:45)
[2019-06-08] MEDS ORDERED: IPRATROPIUM BROMIDE 0.5 MG/2.5 ML NEB SOLUTION NEB ONE (12:45)
[2019-06-08] MEDS ORDERED: CefTRIAXone 1 GM/DEXTROSE 50 ML IV ONE (12:45)
[2019-06-08] MEDS ORDERED: 0.9% SODIUM CHLORIDE 5 ML NEB SOLUTION NEB ONE (12:46)
[2019-06-08 13:01] LABS: BASOPHILS % (AUTO) 0.5 % (0.0-2.0); EOSINOPHILS % (AUTO) 1.8 % (1.0-6.0); HEMATOCRIT 33.1 % (36-46); HEMOGLOBIN 10.4 g/dL (12.0-16.0); LYMPHOCYTES # (AUTO) 1.1 K/uL (1.0-4.8); LYMPHOCYTES % (AUTO) 16.8 % (22.0-44.0); MEAN CORPUSCULAR HEMOGLOBIN 25.6 pg (26.0-34.0); MEAN CORPUSCULAR HGB CONC 31.6 G/dL (31.0-37.0); MEAN CORPUSCULAR VOLUME 81 fL (80-100); MONOCYTES # (AUTO) 0.4 K/uL (0.1-1.0); MONOCYTES % (AUTO) 6.2 % (2.0-9.0); NEUTROPHILS # (AUTO) 4.9 K/uL (1.8-7.7); NEUTROPHILS % (AUTO) 74.7 % (40.0-70.0); PLATELET COUNT (AUTO) 304 K/uL (150-450); RED BLOOD CELL COUNT(AUTO) 4.07 MIL/uL (4.00-5.20); RED CELL DISTRIBUTION WIDTH 21.3 % (11.5-14.5)
[2019-06-08 13:17] LABS: ANION GAP 8 mmol/L (8-16); CARBON DIOXIDE 27 mmol/L (22-29); CHLORIDE 104 mmol/L (98-107); GLOMERULAR FILTR. RATE CALC > 60 mL/min (>60); GLUCOSE,RANDOM 86 mg/dL (70-110); POTASSIUM 3.6 mmol/L (3.5-5.1); SODIUM SERUM 139 mmol/L (136-145); UREA NITROGEN, BLOOD 8 mg/dL (7-18)
[2019-06-08 13:37] LABS: ALANINE AMINOTRANSFERASE 33 U/L (12-78); ALBUMIN 2.8 g/dL (3.4-5.0); ALKALINE PHOSPHATASE 100 U/L (46-116); ASPARTATE AMINOTRANSFERASE 22 U/L (15-37); BILIRUBIN,TOTAL 0.1 mg/dL (0.1-1.0); HCG,QUANTITATIVE 1 mIU/mL (0-6); LIPASE 77 U/L (73-393); TOTAL PROTEIN, SERUM 7.8 g/dL (6.4-8.2)
[2019-06-08] MEDS ORDERED: PB/HYOSCY/ATR/SCOP/LIDO/MAALOX 55 ML BOTTLE PO ONE (14:00)
[2019-06-08] MEDS ORDERED: KETOROLAC TROMETHAMINE 30 MG/ML VIAL IVP ONE (14:45)
[2019-06-08] MEDS ORDERED: HYDROCODONE/ACETAMINOPHEN 5-325 MG TABLET PO ONE (15:45)
[2019-06-08 15:48] VITALS: BP 146/74
== END 2019-06-08 16:27 | disposition home or self-care (01) ==
LOC: EMS 11:58
DX: L97.821 Non-pressure chronic ulcer of other part of left lower leg limited to breakdown of skin (principal); L97.811 Non-pressure chronic ulcer of other part of right lower leg limited to breakdown of skin; R10.13 Epigastric pain; R19.7 Diarrhea, unspecified; J45.909 Unspecified asthma, uncomplicated; Z79.899 Other long term (current) drug therapy
CPT/HCPCS: 36415; 76705; 80053; 83690; 84702; 85025; 96374; 96375; 99284; J1885; J2270

== ENCOUNTER 2019-07-09 10:12 | Emergency (ER) | payer MEDICARE, OTHER ==
[~2019-07-09] VITALS: Ht 175.3 cm; Wt 90.0 kg
[~2019-07-09 10:12] MED LIST changes: -SULF1TAB42 PO; -VENL-53 PO; +VENL-66 PO
[2019-07-09 10:15] VITALS: BP 136/85
== END 2019-07-09 11:09 | disposition left against medical advice (07) ==
LOC: EMS 10:18
DX: K62.5 Hemorrhage of anus and rectum (principal); Z53.21 Procedure and treatment not carried out due to patient leaving prior to being seen by health care provider

== ENCOUNTER 2019-07-21 13:08 | Emergency (ER) | payer MEDICARE, OTHER ==
[~2019-07-21] VITALS: Ht 162.6 cm; Wt 100.0 kg
[2019-07-21] MEDS ORDERED: ONDANSETRON HCL 4 MG TABLET PO ONE (15:00)
[2019-07-21 15:39] LABS: ANION GAP 7 mmol/L (8-16); CALCIUM, TOTAL 9.3 mg/dL (8.8-10.5); CARBON DIOXIDE 28 mmol/L (22-29); CHLORIDE 102 mmol/L (98-107); CREATININE 0.86 mg/dL (0.60-1.30); GLOMERULAR FILTR. RATE CALC > 60 mL/min (>60); GLUCOSE,RANDOM 91 mg/dL (70-110); POTASSIUM 4.3 mmol/L (3.5-5.1); SODIUM SERUM 137 mmol/L (136-145); UREA NITROGEN, BLOOD 12 mg/dL (7-18)
[2019-07-21 15:44] LABS: ALANINE AMINOTRANSFERASE 28 U/L (12-78); ALBUMIN 3.6 g/dL (3.4-5.0); ALKALINE PHOSPHATASE 114 U/L (46-116); ASPARTATE AMINOTRANSFERASE 27 U/L (15-37); BILIRUBIN,TOTAL 0.5 mg/dL (0.1-1.0); HCG,QUANTITATIVE 2 mIU/mL (0-6); LIPASE 88 U/L (73-393); TOTAL PROTEIN, SERUM 8.1 g/dL (6.4-8.2)
[2019-07-21 16:04] LABS: BASOPHILS % (AUTO) 0.4 % (0.0-2.0); EOSINOPHILS % (AUTO) 3.2 % (1.0-6.0); HEMATOCRIT 37.3 % (36-46); HEMOGLOBIN 12.1 g/dL (12.0-16.0); LYMPHOCYTES # (AUTO) 0.9 K/uL (1.0-4.8); LYMPHOCYTES % (AUTO) 14.6 % (22.0-44.0); MEAN CORPUSCULAR HEMOGLOBIN 26.6 pg (26.0-34.0); MEAN CORPUSCULAR HGB CONC 32.4 G/dL (31.0-37.0); MEAN CORPUSCULAR VOLUME 82 fL (80-100); MONOCYTES # (AUTO) 0.4 K/uL (0.1-1.0); MONOCYTES % (AUTO) 6.6 % (2.0-9.0); NEUTROPHILS # (AUTO) 4.6 K/uL (1.8-7.7); NEUTROPHILS % (AUTO) 75.2 % (40.0-70.0); PLATELET COUNT (AUTO) 261 K/uL (150-450); RED BLOOD CELL COUNT(AUTO) 4.55 MIL/uL (4.00-5.20); RED CELL DISTRIBUTION WIDTH 19.1 % (11.5-14.5)
[2019-07-21 16:17] LABS: INR 1.1 (0.9-1.1); PROTHROMBIN TIME 11.2 SEC (9.4-11.6)
[2019-07-21] MEDS ORDERED: PANTOPRAZOLE SODIUM 40 MG/VIAL IVP ONE (16:30)
[2019-07-21] MEDS ORDERED: PB/HYOSCY/ATR/SCOP/LIDO/MAALOX 55 ML BOTTLE PO ONE (16:30)
[2019-07-21] MEDS ORDERED: IOVERSOL 350 MG/ML 150 ML VIAL ONE (18:10)
[2019-07-21] MEDS ORDERED: SODIUM CHLORIDE 0.9% 100 ML ONE (18:10)
[2019-07-21 20:14] VITALS: BP 167/89
== END 2019-07-21 21:11 | disposition home or self-care (01) ==
LOC: EMS 13:09
DX: K42.9 Umbilical hernia without obstruction or gangrene (principal); R11.2 Nausea with vomiting, unspecified; R19.7 Diarrhea, unspecified
CPT/HCPCS: 36415; 74177; 80053; 83690; 84702; 85025; 85610; 85730; 96374; 99285; C9113; J7050; Q0162; Q9967

== ENCOUNTER 2020-10-24 07:00 | Emergency (ER) | payer MEDICARE, OTHER ==
[~2020-10-24] VITALS: Ht 172.7 cm; Wt 102.3 kg
[~2020-10-24 07:00] MED LIST changes: -ASCO500 PO; +DULO-8 PO; -FAMO20 PO; -FERR-89 PO; +FERSL PO; -FURO40 PO; +GABA600T10 PO; +LEVO100 PO; -LEVO150 PO; +LISI-892 PO; +MAGN400T7 PO; +MELA3TAB89 PO; +METO50 PO; +METO5TAB95 PO; +MIRT-89 PO; -NAPR-1025 PO; +OLAN5TAB52 PO; +OS500 PO; +PANT-31 PO; +POLY17PO47 PO; -POTA8TAB4 PO; +SENN-144 PO; -VENL-66 PO; -ZINC50TA2 PO
[2020-10-24] MEDS ORDERED: HYDROCODONE/ACETAMINOPHEN 5-325 MG TABLET PO ONE (07:30)
[2020-10-24 08:16] LABS: BASOPHILS % (AUTO) 0.3 % (0.0-2.0); EOSINOPHILS % (AUTO) 1.9 % (1.0-6.0); HEMOGLOBIN 12.8 g/dL (12.0-16.0); LYMPHOCYTES # (AUTO) 0.9 K/uL (1.0-4.8); LYMPHOCYTES % (AUTO) 13.1 % (22.0-44.0); MEAN CORPUSCULAR HEMOGLOBIN 28.7 pg (26.0-34.0); MEAN CORPUSCULAR HGB CONC 32.9 G/dL (31.0-37.0); MEAN CORPUSCULAR VOLUME 87 fL (80-100); MONOCYTES # (AUTO) 0.3 K/uL (0.1-1.0); MONOCYTES % (AUTO) 4.4 % (2.0-9.0); NEUTROPHILS # (AUTO) 5.7 K/uL (1.8-7.7); NEUTROPHILS % (AUTO) 80.3 % (40.0-70.0); PLATELET COUNT (AUTO) 233 K/uL (150-450); RED BLOOD CELL COUNT(AUTO) 4.47 MIL/uL (4.00-5.20); RED CELL DISTRIBUTION WIDTH 14.5 % (11.5-14.5)
[2020-10-24 08:26] LABS: ANION GAP 4 mmol/L (8-16); CALCIUM, TOTAL 8.9 mg/dL (8.8-10.5); CARBON DIOXIDE 28 mmol/L (22-29); CHLORIDE 103 mmol/L (98-107); CREATININE 0.98 mg/dL (0.60-1.30); GLOMERULAR FILTR. RATE CALC > 60 mL/min (>60); GLUCOSE,RANDOM 117 mg/dL (70-110); POTASSIUM 3.9 mmol/L (3.5-5.1); SODIUM SERUM 135 mmol/L (136-145); UREA NITROGEN, BLOOD 9 mg/dL (7-18)
[2020-10-24 08:33] LABS: ALANINE AMINOTRANSFERASE 28 U/L (12-78); ALBUMIN 3.3 g/dL (3.4-5.0); ALKALINE PHOSPHATASE 150 U/L (46-116); ASPARTATE AMINOTRANSFERASE 22 U/L (15-37); BILIRUBIN,TOTAL 0.3 mg/dL (0.1-1.0); LIPASE 164 U/L (73-393); TOTAL PROTEIN, SERUM 7.9 g/dL (6.4-8.2)
[2020-10-24 08:34] LABS: PROTHROMBIN TIME 10.7 SEC (9.4-11.6)
[2020-10-24] MEDS ORDERED: ONDANSETRON HCL 4 MG TABLET PO ONE (10:00)
[2020-10-24] MEDS ORDERED: KETOROLAC TROMETHAMINE 60 MG/2 ML VIAL IM ONE (10:00)
[2020-10-24 10:30] VITALS: BP 155/95
== END 2020-10-24 11:05 | disposition home or self-care (01) ==
LOC: EMS 07:00
DX: R10.31 Right lower quadrant pain (principal); M25.552 Pain in left hip; M25.551 Pain in right hip; F41.9 Anxiety disorder, unspecified; F32.9 Major depressive disorder, single episode, unspecified; J45.909 Unspecified asthma, uncomplicated; F20.9 Schizophrenia, unspecified; Z88.8 Allergy status to other drugs, medicaments and biological substances; Z79.899 Other long term (current) drug therapy
CPT/HCPCS: 36415; 74176; 80053; 83690; 84484; 84702; 85025; 85610; 96372; 99284; J1885; Q0162

== ENCOUNTER 2020-11-09 13:15 | Emergency (ER) | payer MEDICARE, OTHER ==
[~2020-11-09] VITALS: Ht 170.2 cm; Wt 113.6 kg
[~2020-11-09 13:15] MED LIST changes: -DULO-8 PO; +DULO60CA98 PO
[2020-11-09] MEDS ORDERED: SULFAMETHOX/TRIMETH DS 800-160 MG/TABLET PO ONE (14:15)
[2020-11-09] MEDS ORDERED: CefTRIAXone SODIUM 1 GM/VIAL IM ONE (14:15)
[2020-11-09] MEDS ORDERED: LIDOCAINE/PF 1% 2 ML VIAL IM ONE (14:15)
[2020-11-09] MEDS: ACETAMINOPHEN 325 MG TABLET PO ONE ×2 (14:34→14:40)
[2020-11-09] MEDS ORDERED: OxyCODONE HCL 5 MG IR TABLET PO ONE (15:15)
[2020-11-09 15:36] VITALS: BP 126/79
== END 2020-11-09 15:53 | disposition home or self-care (01) ==
LOC: EMS 13:15
DX: L03.116 Cellulitis of left lower limb (principal); J45.909 Unspecified asthma, uncomplicated; F32.9 Major depressive disorder, single episode, unspecified; F41.9 Anxiety disorder, unspecified; F20.9 Schizophrenia, unspecified; Z79.899 Other long term (current) drug therapy; Z88.6 Allergy status to analgesic agent
CPT/HCPCS: 96372; 99283; J0696; J3490

== ENCOUNTER 2020-12-15 13:14 | Emergency (ER) | payer MEDICARE, OTHER ==
[~2020-12-15] VITALS: Ht 175.3 cm; Wt 113.6 kg
[2020-12-15] MEDS ORDERED: MAG HYDROX/AL HYDROX/SIMETH ES 30 ML SUSPENSION UDCUP PO ONE (16:00)
[2020-12-15] MEDS ORDERED: PANTOPRAZOLE SODIUM 40 MG/VIAL IVP ONE (16:00)
[2020-12-15 16:38] LABS: BASOPHILS % (AUTO) 0.4 % (0.0-2.0); EOSINOPHILS % (AUTO) 5.5 % (1.0-6.0); HEMATOCRIT 39.5 % (36-46); HEMOGLOBIN 12.5 g/dL (12.0-16.0); LYMPHOCYTES # (AUTO) 1.9 K/uL (1.0-4.8); LYMPHOCYTES % (AUTO) 29.7 % (22.0-44.0); MEAN CORPUSCULAR HEMOGLOBIN 27.3 pg (26.0-34.0); MEAN CORPUSCULAR HGB CONC 31.7 G/dL (31.0-37.0); MEAN CORPUSCULAR VOLUME 86 fL (80-100); MONOCYTES # (AUTO) 0.4 K/uL (0.1-1.0); MONOCYTES % (AUTO) 6.9 % (2.0-9.0); NEUTROPHILS # (AUTO) 3.6 K/uL (1.8-7.7); NEUTROPHILS % (AUTO) 57.5 % (40.0-70.0); PLATELET COUNT (AUTO) 238 K/uL (150-450); RED CELL DISTRIBUTION WIDTH 15.1 % (11.5-14.5)
[2020-12-15 16:57] LABS: CALCIUM, TOTAL 8.7 mg/dL (8.8-10.5); CREATININE 1.11 mg/dL (0.60-1.30); POTASSIUM 4.6 mmol/L (3.5-5.1)
[2020-12-15 17:02] LABS: ALBUMIN 3.2 g/dL (3.4-5.0); BILIRUBIN,TOTAL 0.3 mg/dL (0.1-1.0)
[2020-12-15] MEDS ORDERED: IOHEXOL 350 MG/ML 150 ML VIAL ONE (17:19)
[2020-12-15] MEDS ORDERED: SODIUM CHLORIDE 0.9% 0 ML ONE (17:19)
[2020-12-15] MEDS ORDERED: KETOROLAC TROMETHAMINE 30 MG/ML VIAL IVP ONE (17:45)
[2020-12-15] MEDS ORDERED: ONDANSETRON HCL 4 MG/2 ML VIAL IVP ONE (17:45)
[2020-12-15] MEDS ORDERED: BARIUM SULFATE 0.1% SUSPENSION 450 ML BOTTLE PO ONE (18:00)
[2020-12-15 21:00] VITALS: BP 130/77
== END 2020-12-15 21:30 | disposition home or self-care (01) ==
LOC: EMS 13:18
DX: R10.13 Epigastric pain (principal); R11.10 Vomiting, unspecified; J45.909 Unspecified asthma, uncomplicated; F41.9 Anxiety disorder, unspecified; F32.9 Major depressive disorder, single episode, unspecified; F20.9 Schizophrenia, unspecified; Z79.899 Other long term (current) drug therapy; Z88.6 Allergy status to analgesic agent
CPT/HCPCS: 36415; 74176; 80053; 81025; 83690; 85025; 96374; 96375; 99285; C9113; J1885; J2405; Q9967; J7050

== ENCOUNTER 2021-02-14 09:54 | Emergency (ER) | payer MEDICARE, OTHER ==
[~2021-02-14] VITALS: Ht 170.2 cm; Wt 104.5 kg
[2021-02-14] MEDS ORDERED: KETOROLAC TROMETHAMINE 60 MG/2 ML VIAL IM ONE (11:15)
[2021-02-14 11:23] VITALS: BP 139/87
== END 2021-02-14 11:44 | disposition home or self-care (01) ==
LOC: EMS 09:54
DX: M79.604 Pain in right leg (principal); M79.605 Pain in left leg; F41.9 Anxiety disorder, unspecified; J45.909 Unspecified asthma, uncomplicated; F32.9 Major depressive disorder, single episode, unspecified; F20.9 Schizophrenia, unspecified; Z88.5 Allergy status to narcotic agent; Z79.899 Other long term (current) drug therapy; Z76.0 Encounter for issue of repeat prescription
CPT/HCPCS: 96372; 99283; J1885

== ENCOUNTER 2021-03-10 15:41 | Inpatient (IN) | payer MEDICARE ==
[~2021-03-10] VITALS: Ht 170.2 cm; Wt 117.0 kg
[~2021-03-10 15:41] MED LIST changes: +FERR-89 PO; -FERSL PO
[2021-03-10 16:50] VITALS: BP 148/91
[2021-03-10] MEDS ORDERED: BACITRACIN 28 GM OINTMENT TP PRN (19:30)
[2021-03-10] MEDS ORDERED: ONDANSETRON HCL 4 MG TABLET PO PRN (19:30)
[2021-03-10] MEDS ORDERED: MAGNESIUM HYDROXIDE SUSPENSION 30 ML UDCUP PO PRN (19:30)
[2021-03-10] MEDS ORDERED: ACETAMINOPHEN 325 MG TABLET PO PRN (19:30)
[2021-03-10] MEDS ORDERED: ALBUTEROL SULFATE HFA 90 MCG/PUFF 8 GM INHALER IH PRN (19:30)
[2021-03-10] MEDS ORDERED: LOPERAMIDE HCL 2 MG CAPSULE PO PRN (19:30)
[2021-03-10] MEDS ORDERED: PETROLATUM,WHITE 28 GM JELLY TP PRN (19:30)
[2021-03-10] MEDS ORDERED: DOCUSATE SODIUM 100 MG CAPSULE PO PRN (19:30)
[2021-03-10] MEDS ORDERED: OMEPRAZOLE 20 MG CAPSULE PO PRN (19:30)
[2021-03-10] MEDS ORDERED: CloNIDine HCL 0.1 MG TABLET PO PRN (19:30)
[2021-03-10] MEDS ORDERED: MAG HYDROX/AL HYDROX/SIMETH ES 30 ML SUSPENSION UDCUP PO PRN (19:30)
[2021-03-10] MEDS: IBUPROFEN 600 MG TABLET PO PRN (19:52)
[2021-03-10] MEDS: ZOLPIDEM TARTRATE 10 MG TABLET PO PRN (20:15)
[2021-03-10] MEDS: HALOPERIDOL 5 MG TABLET PO PRN (20:16)
[2021-03-10] MEDS ORDERED: HALOPERIDOL LACTATE 5 MG/ML VIAL IM ONE (20:45)
[2021-03-10] MEDS ORDERED: DiphenhydrAMINE HCL 50 MG/ML VIAL IM ONE (20:45)
[2021-03-10] MEDS ORDERED: DiphenhydrAMINE HCL 50 MG/ML VIAL ONE (20:45)
[2021-03-10] MEDS ORDERED: LORazepam 2 MG/ML VIAL IM ONE (20:45)
[2021-03-10] MEDS ORDERED: LORazepam 2 MG/ML VIAL ONE (20:45)
[2021-03-10] MEDS ORDERED: HALOPERIDOL LACTATE 5 MG/ML VIAL ONE (20:45)
[2021-03-11] MEDS: LEVOTHYROXINE SODIUM 100 MCG TABLET PO SCH (06:39)
[2021-03-11 08:00] VITALS: BP 137/71
[2021-03-11] MEDS: DOXYCYCLINE HYCLATE 100 MG TABLET PO SCH ×2 (08:05→16:06)
[2021-03-11] MEDS: GABAPENTIN 300 MG CAPSULE PO SCH ×3 (08:05→16:06)
[2021-03-11] MEDS: PANTOPRAZOLE SODIUM 40 MG DR TABLET PO SCH (08:05)
[2021-03-11] MEDS: CITALOPRAM HYDROBROMIDE 20 MG TABLET PO SCH (08:07)
[2021-03-11] MEDS: LISINOPRIL 5 MG TABLET PO SCH (08:07)
[2021-03-11] MEDS: METOPROLOL TARTRATE 50 MG TABLET PO SCH (08:07)
[2021-03-11] MEDS: LORazepam 2 MG TABLET PO PRN ×2 (08:11→15:27)
[2021-03-11] MEDS: IBUPROFEN 600 MG TABLET PO PRN (15:27)
[2021-03-11 15:28] VITALS: BP 111/85
[2021-03-11] MEDS: HALOPERIDOL 5 MG TABLET PO PRN (16:06)
[2021-03-11 16:34] VITALS: BP 120/80
[2021-03-12 01:30] VITALS: BP 124/81
[2021-03-12] MEDS: IBUPROFEN 600 MG TABLET PO PRN ×4 (01:31→21:00)
[2021-03-12] MEDS: ZOLPIDEM TARTRATE 10 MG TABLET PO PRN ×2 (01:31→20:43)
[2021-03-12] MEDS: LEVOTHYROXINE SODIUM 100 MCG TABLET PO SCH (07:38)
[2021-03-12] MEDS: LORazepam 2 MG TABLET PO PRN ×2 (07:38→16:03)
[2021-03-12 08:20] VITALS: BP 127/73
[2021-03-12] MEDS: CITALOPRAM HYDROBROMIDE 20 MG TABLET PO SCH (08:56)
[2021-03-12] MEDS: METOPROLOL TARTRATE 50 MG TABLET PO SCH (08:56)
[2021-03-12] MEDS: PANTOPRAZOLE SODIUM 40 MG DR TABLET PO SCH (08:56)
[2021-03-12] MEDS: DOXYCYCLINE HYCLATE 100 MG TABLET PO SCH ×2 (08:56→16:04)
[2021-03-12] MEDS: GABAPENTIN 300 MG CAPSULE PO SCH ×3 (08:56→16:03)
[2021-03-12] MEDS: LISINOPRIL 5 MG TABLET PO SCH (08:57)
[2021-03-12 14:21] VITALS: BP 122/71
[2021-03-12] MEDS: BENZOCAINE/MENTHOL LOZENGE PO PRN (15:16)
[2021-03-12] MEDS: MUPIROCIN CALCIUM 2% 22 GM OINTMENT NASAL SCH (16:04)
[2021-03-12 16:05] VITALS: BP 126/82
[2021-03-12] MEDS: HALOPERIDOL 5 MG TABLET PO PRN ×2 (16:37→20:43)
[2021-03-13 06:05] VITALS: BP 149/87
[2021-03-13] MEDS: IBUPROFEN 600 MG TABLET PO PRN (06:07)
[2021-03-13] MEDS: LEVOTHYROXINE SODIUM 100 MCG TABLET PO SCH (06:27)
[2021-03-13 07:10] VITALS: BP 129/87
[2021-03-13] MEDS: METOPROLOL TARTRATE 50 MG TABLET PO SCH (08:15)
[2021-03-13] MEDS: LISINOPRIL 5 MG TABLET PO SCH (08:15)
[2021-03-13] MEDS: CITALOPRAM HYDROBROMIDE 20 MG TABLET PO SCH (08:15)
[2021-03-13] MEDS: MUPIROCIN CALCIUM 2% 22 GM OINTMENT NASAL SCH ×2 (08:15→16:59)
[2021-03-13] MEDS: DOXYCYCLINE HYCLATE 100 MG TABLET PO SCH ×2 (08:15→16:59)
[2021-03-13] MEDS: PANTOPRAZOLE SODIUM 40 MG DR TABLET PO SCH (08:16)
[2021-03-13] MEDS: GABAPENTIN 300 MG CAPSULE PO SCH ×3 (08:18→16:58)
[2021-03-13] MEDS: TiZANidine HCL 4 MG TABLET PO SCH ×3 (08:19→16:59)
[2021-03-13 08:49] LABS: FREE T4 (FREE THYROXINE) 1.15 ng/dL (0.76-1.46); THYROID STIMULATING HORMONE 2.39 uIU/mL (0.36-3.74)
[2021-03-13 09:00] VITALS: BP 149/95
[2021-03-13] MEDS: LORazepam 2 MG TABLET PO PRN (09:44)
[2021-03-13] MEDS: BENZOCAINE/MENTHOL LOZENGE PO PRN (11:47)
[2021-03-13] MEDS ORDERED: IBUPROFEN 800 MG TABLET PO PRN (13:30)
[2021-03-13] MEDS ORDERED: HYDROCODONE/ACETAMINOPHEN 5-325 MG TABLET PO PRN (14:30)
[2021-03-13 16:11] VITALS: BP 116/75
[2021-03-13 19:46] VITALS: BP 142/78
[2021-03-13] MEDS: OxyCODONE HCL 5 MG IR TABLET PO PRN (19:46)
[2021-03-13 20:46] VITALS: BP 138/70
[2021-03-14] MEDS: LORazepam 2 MG TABLET PO PRN ×2 (00:34→21:41)
[2021-03-14] MEDS: ZOLPIDEM TARTRATE 10 MG TABLET PO PRN ×2 (00:35→20:37)
[2021-03-14 00:36] VITALS: BP 112/65
[2021-03-14 06:28] VITALS: BP 119/70
[2021-03-14] MEDS: OxyCODONE HCL 5 MG IR TABLET PO PRN ×2 (06:28→13:28)
[2021-03-14] MEDS: LEVOTHYROXINE SODIUM 100 MCG TABLET PO SCH (06:44)
[2021-03-14] MEDS: MUPIROCIN CALCIUM 2% 22 GM OINTMENT NASAL SCH ×2 (08:22→16:48)
[2021-03-14] MEDS: LISINOPRIL 5 MG TABLET PO SCH (08:23)
[2021-03-14] MEDS: GABAPENTIN 300 MG CAPSULE PO SCH ×3 (08:23→16:48)
[2021-03-14] MEDS: METOPROLOL TARTRATE 50 MG TABLET PO SCH (08:23)
[2021-03-14] MEDS: CITALOPRAM HYDROBROMIDE 20 MG TABLET PO SCH (08:23)
[2021-03-14] MEDS: DOXYCYCLINE HYCLATE 100 MG TABLET PO SCH ×2 (08:23→16:48)
[2021-03-14] MEDS: PANTOPRAZOLE SODIUM 40 MG DR TABLET PO SCH (08:23)
[2021-03-14] MEDS: TiZANidine HCL 4 MG TABLET PO SCH ×3 (08:23→16:48)
[2021-03-14] MEDS: HYDROCODONE/ACETAMINOPHEN 5-325 MG TABLET PO PRN (08:31)
[2021-03-14 08:40] VITALS: BP 113/66
[2021-03-14 16:49] VITALS: BP 112/67
[2021-03-14 19:32] VITALS: BP 115/86
[2021-03-14 21:41] VITALS: BP 117/70
[2021-03-14] MEDS: HALOPERIDOL 5 MG TABLET PO PRN (21:41)
[2021-03-15 00:05] VITALS: BP 134/75
[2021-03-15] MEDS: OxyCODONE HCL 5 MG IR TABLET PO PRN (00:05)
[2021-03-15] MEDS: LORazepam 2 MG TABLET PO PRN ×2 (04:10→12:25)
[2021-03-15] MEDS: LEVOTHYROXINE SODIUM 100 MCG TABLET PO SCH (06:52)
[2021-03-15 08:23] LABS: COVID AG,FIA SOURCE NASAL SWAB
[2021-03-15 08:35] LABS: HEMOGLOBIN A1C 5.6 % (3.8-5.6)
[2021-03-15] MEDS: GABAPENTIN 300 MG CAPSULE PO SCH ×3 (08:35→16:23)
[2021-03-15] MEDS: DOXYCYCLINE HYCLATE 100 MG TABLET PO SCH ×2 (08:36→16:22)
[2021-03-15] MEDS: PANTOPRAZOLE SODIUM 40 MG DR TABLET PO SCH (08:36)
[2021-03-15] MEDS: MULTIVITAMINS WITH MINERALS, THERAPEUTIC TABLET PO SCH (08:36)
[2021-03-15] MEDS: TiZANidine HCL 4 MG TABLET PO SCH ×3 (08:36→16:22)
[2021-03-15] MEDS: HYDROCODONE/ACETAMINOPHEN 5-325 MG TABLET PO PRN (08:37)
[2021-03-15] MEDS: MUPIROCIN CALCIUM 2% 22 GM OINTMENT NASAL SCH ×2 (08:38→16:20)
[2021-03-15] MEDS: METOPROLOL TARTRATE 50 MG TABLET PO SCH (08:38)
[2021-03-15] MEDS: CITALOPRAM HYDROBROMIDE 20 MG TABLET PO SCH (08:38)
[2021-03-15 08:39] VITALS: BP 123/76
[2021-03-15 08:40] LABS: ALBUMIN 2.9 g/dL (3.4-5.0); BILIRUBIN,TOTAL 0.3 mg/dL (0.1-1.0); CALCIUM, TOTAL 9.4 mg/dL (8.8-10.5); CREATININE 1.08 mg/dL (0.60-1.30); POTASSIUM 5.2 mmol/L (3.5-5.1); TOTAL PROTEIN, SERUM 7.6 g/dL (6.4-8.2)
[2021-03-15 09:38] VITALS: BP 121/81
[2021-03-15 09:39] VITALS: BP 122/80
[2021-03-15] MEDS: LISINOPRIL 5 MG TABLET PO SCH (12:23)
[2021-03-15 16:15] VITALS: BP 105/59
[2021-03-15] MEDS: HALOPERIDOL 5 MG TABLET PO PRN (16:21)
[2021-03-16 00:11] VITALS: BP 118/72
[2021-03-16] MEDS: ZOLPIDEM TARTRATE 10 MG TABLET PO PRN ×2 (00:13→20:46)
[2021-03-16] MEDS: OxyCODONE HCL 5 MG IR TABLET PO PRN ×2 (00:13→16:49)
[2021-03-16] MEDS: LORazepam 2 MG TABLET PO PRN ×2 (00:28→20:48)
[2021-03-16 06:15] VITALS: BP 126/80
[2021-03-16] MEDS: HYDROCODONE/ACETAMINOPHEN 5-325 MG TABLET PO PRN (06:21)
[2021-03-16] MEDS: LEVOTHYROXINE SODIUM 100 MCG TABLET PO SCH (06:21)
[2021-03-16 08:02] LABS: CREATININE 1.01 mg/dL (0.60-1.30); POTASSIUM 4.3 mmol/L (3.5-5.1)
[2021-03-16 08:12] VITALS: BP 109/60
[2021-03-16] MEDS: MULTIVITAMINS WITH MINERALS, THERAPEUTIC TABLET PO SCH (08:24)
[2021-03-16] MEDS: GABAPENTIN 300 MG CAPSULE PO SCH ×3 (08:25→16:17)
[2021-03-16] MEDS: PANTOPRAZOLE SODIUM 40 MG DR TABLET PO SCH (08:25)
[2021-03-16] MEDS: DOXYCYCLINE HYCLATE 100 MG TABLET PO SCH ×2 (08:26→16:16)
[2021-03-16] MEDS: LISINOPRIL 5 MG TABLET PO SCH (08:26)
[2021-03-16] MEDS: TiZANidine HCL 4 MG TABLET PO SCH ×3 (08:27→16:16)
[2021-03-16] MEDS: CITALOPRAM HYDROBROMIDE 20 MG TABLET PO SCH (08:27)
[2021-03-16] MEDS: METOPROLOL TARTRATE 50 MG TABLET PO SCH (08:27)
[2021-03-16] MEDS: MUPIROCIN CALCIUM 2% 22 GM OINTMENT NASAL SCH ×2 (08:27→16:18)
[2021-03-16 16:44] VITALS: BP 146/81
[2021-03-17] VITALS (7 sets, daily range): BP systolic 110–149; BP diastolic 78–90
[2021-03-17] MEDS: OxyCODONE HCL 5 MG IR TABLET PO PRN ×3 (02:29→17:10)
[2021-03-17] MEDS: LORazepam 2 MG TABLET PO PRN ×2 (02:36→20:05)
[2021-03-17] MEDS: LEVOTHYROXINE SODIUM 100 MCG TABLET PO SCH (06:29)
[2021-03-17] MEDS: HYDROCODONE/ACETAMINOPHEN 5-325 MG TABLET PO PRN (06:34)
[2021-03-17] MEDS: MUPIROCIN CALCIUM 2% 22 GM OINTMENT NASAL SCH (08:37)
[2021-03-17] MEDS: GABAPENTIN 300 MG CAPSULE PO SCH ×3 (08:38→17:03)
[2021-03-17] MEDS: CITALOPRAM HYDROBROMIDE 20 MG TABLET PO SCH (08:38)
[2021-03-17] MEDS: LISINOPRIL 5 MG TABLET PO SCH (08:38)
[2021-03-17] MEDS: MULTIVITAMINS WITH MINERALS, THERAPEUTIC TABLET PO SCH (08:38)
[2021-03-17] MEDS: METOPROLOL TARTRATE 50 MG TABLET PO SCH (08:38)
[2021-03-17] MEDS: TiZANidine HCL 4 MG TABLET PO SCH ×3 (08:38→17:02)
[2021-03-17] MEDS: PANTOPRAZOLE SODIUM 40 MG DR TABLET PO SCH (08:38)
[2021-03-17] MEDS: DOXYCYCLINE HYCLATE 100 MG TABLET PO SCH ×2 (08:38→17:02)
[2021-03-17] MEDS: ZOLPIDEM TARTRATE 10 MG TABLET PO PRN (20:17)
[2021-03-18 05:45] VITALS: BP 139/82
[2021-03-18] MEDS: OxyCODONE HCL 5 MG IR TABLET PO PRN ×3 (05:47→20:52)
[2021-03-18] MEDS: LEVOTHYROXINE SODIUM 100 MCG TABLET PO SCH (06:12)
[2021-03-18 06:47] VITALS: BP 126/68
[2021-03-18 08:20] VITALS: BP 132/98
[2021-03-18] MEDS: METOPROLOL TARTRATE 50 MG TABLET PO SCH (08:30)
[2021-03-18] MEDS: LISINOPRIL 5 MG TABLET PO SCH (08:30)
[2021-03-18] MEDS: MULTIVITAMINS WITH MINERALS, THERAPEUTIC TABLET PO SCH (08:30)
[2021-03-18] MEDS: DOXYCYCLINE HYCLATE 100 MG TABLET PO SCH ×2 (08:31→16:59)
[2021-03-18] MEDS: CITALOPRAM HYDROBROMIDE 20 MG TABLET PO SCH (08:31)
[2021-03-18] MEDS: TiZANidine HCL 4 MG TABLET PO SCH ×3 (08:31→16:59)
[2021-03-18] MEDS: PANTOPRAZOLE SODIUM 40 MG DR TABLET PO SCH (08:31)
[2021-03-18] MEDS: GABAPENTIN 300 MG CAPSULE PO SCH ×3 (08:31→16:59)
[2021-03-18 12:27] VITALS: BP 116/73
[2021-03-18] MEDS: BENZOCAINE/MENTHOL LOZENGE PO PRN (12:52)
[2021-03-18 16:55] VITALS: BP 100/64
[2021-03-18 20:50] VITALS: BP 119/77
[2021-03-18] MEDS: LORazepam 2 MG TABLET PO PRN (21:13)
[2021-03-18] MEDS: ZOLPIDEM TARTRATE 10 MG TABLET PO PRN (21:27)
[2021-03-19 02:30] VITALS: BP 118/71
[2021-03-19] MEDS: HYDROCODONE/ACETAMINOPHEN 5-325 MG TABLET PO PRN (02:34)
[2021-03-19 06:07] VITALS: BP 181/106
[2021-03-19 06:10] VITALS: BP 126/70
[2021-03-19] MEDS: LEVOTHYROXINE SODIUM 100 MCG TABLET PO SCH (06:26)
[2021-03-19] MEDS: OxyCODONE HCL 5 MG IR TABLET PO PRN ×3 (06:26→20:40)
[2021-03-19] MEDS: PANTOPRAZOLE SODIUM 40 MG DR TABLET PO SCH (08:48)
[2021-03-19] MEDS: TiZANidine HCL 4 MG TABLET PO SCH ×3 (08:48→16:34)
[2021-03-19] MEDS: LISINOPRIL 5 MG TABLET PO SCH (08:48)
[2021-03-19] MEDS: DOXYCYCLINE HYCLATE 100 MG TABLET PO SCH ×2 (08:49→16:34)
[2021-03-19] MEDS: METOPROLOL TARTRATE 50 MG TABLET PO SCH (08:49)
[2021-03-19] MEDS: GABAPENTIN 300 MG CAPSULE PO SCH ×3 (08:49→16:34)
[2021-03-19] MEDS: CITALOPRAM HYDROBROMIDE 20 MG TABLET PO SCH (08:49)
[2021-03-19] MEDS: MULTIVITAMINS WITH MINERALS, THERAPEUTIC TABLET PO SCH (08:49)
[2021-03-19 08:55] VITALS: BP 124/78
[2021-03-19 13:06] VITALS: BP 126/74
[2021-03-19 16:03] VITALS: BP 111/71
[2021-03-19] MEDS: ZOLPIDEM TARTRATE 10 MG TABLET PO PRN (21:45)
[2021-03-20] VITALS (8 sets, daily range): BP systolic 103–120; BP diastolic 58–80
[2021-03-20] MEDS: LORazepam 2 MG TABLET PO PRN ×2 (01:13→18:57)
[2021-03-20] MEDS: LEVOTHYROXINE SODIUM 100 MCG TABLET PO SCH (06:39)
[2021-03-20] MEDS: OxyCODONE HCL 5 MG IR TABLET PO PRN ×2 (06:45→13:49)
[2021-03-20] MEDS: LISINOPRIL 5 MG TABLET PO SCH ×2 (09:00→09:15)
[2021-03-20] MEDS: METOPROLOL TARTRATE 50 MG TABLET PO SCH ×2 (09:00→09:15)
[2021-03-20] MEDS: MULTIVITAMINS WITH MINERALS, THERAPEUTIC TABLET PO SCH (09:14)
[2021-03-20] MEDS: PANTOPRAZOLE SODIUM 40 MG DR TABLET PO SCH (09:14)
[2021-03-20] MEDS: TiZANidine HCL 4 MG TABLET PO SCH ×3 (09:14→16:30)
[2021-03-20] MEDS: GABAPENTIN 300 MG CAPSULE PO SCH ×3 (09:14→16:30)
[2021-03-20] MEDS: DOXYCYCLINE HYCLATE 100 MG TABLET PO SCH ×2 (09:15→16:30)
[2021-03-20] MEDS: CITALOPRAM HYDROBROMIDE 20 MG TABLET PO SCH (09:15)
[2021-03-20] MEDS: ZOLPIDEM TARTRATE 10 MG TABLET PO PRN (20:35)
[2021-03-21 05:50] VITALS: BP 142/76
[2021-03-21] MEDS: LEVOTHYROXINE SODIUM 100 MCG TABLET PO SCH ×2 (05:57→06:06)
[2021-03-21] MEDS: OxyCODONE HCL 5 MG IR TABLET PO PRN ×3 (05:58→22:07)
[2021-03-21 08:18] VITALS: BP 119/69
[2021-03-21] MEDS: MULTIVITAMINS WITH MINERALS, THERAPEUTIC TABLET PO SCH (08:33)
[2021-03-21] MEDS: PANTOPRAZOLE SODIUM 40 MG DR TABLET PO SCH (08:34)
[2021-03-21] MEDS: GABAPENTIN 300 MG CAPSULE PO SCH ×3 (08:34→16:06)
[2021-03-21] MEDS: CITALOPRAM HYDROBROMIDE 20 MG TABLET PO SCH (08:34)
[2021-03-21] MEDS: LISINOPRIL 5 MG TABLET PO SCH (08:35)
[2021-03-21] MEDS: TiZANidine HCL 4 MG TABLET PO SCH ×3 (08:35→16:06)
[2021-03-21] MEDS: METOPROLOL TARTRATE 50 MG TABLET PO SCH (08:35)
[2021-03-21 10:20] LABS: COVID AG,FIA SOURCE NASAL SWAB
[2021-03-21 13:37] VITALS: BP 113/65
[2021-03-21 14:45] VITALS: BP 115/63
[2021-03-21 16:30] VITALS: BP 107/63
[2021-03-21] MEDS: ZOLPIDEM TARTRATE 10 MG TABLET PO PRN (20:41)
[2021-03-22 04:30] VITALS: BP 112/65
[2021-03-22 05:45] VITALS: BP 124/70
[2021-03-22] MEDS: OxyCODONE HCL 5 MG IR TABLET PO PRN ×2 (05:56→13:44)
[2021-03-22] MEDS: LEVOTHYROXINE SODIUM 100 MCG TABLET PO SCH (06:33)
[2021-03-22 08:25] VITALS: BP 124/72
[2021-03-22] MEDS: GABAPENTIN 300 MG CAPSULE PO SCH ×3 (09:19→16:48)
[2021-03-22] MEDS: CITALOPRAM HYDROBROMIDE 20 MG TABLET PO SCH (09:19)
[2021-03-22] MEDS: LISINOPRIL 5 MG TABLET PO SCH (09:20)
[2021-03-22] MEDS: METOPROLOL TARTRATE 50 MG TABLET PO SCH (09:20)
[2021-03-22] MEDS: PANTOPRAZOLE SODIUM 40 MG DR TABLET PO SCH (09:20)
[2021-03-22] MEDS: TiZANidine HCL 4 MG TABLET PO SCH ×3 (09:20→16:48)
[2021-03-22] MEDS: MULTIVITAMINS WITH MINERALS, THERAPEUTIC TABLET PO SCH (09:20)
[2021-03-22 13:44] VITALS: BP 114/67
[2021-03-22 14:44] VITALS: BP 116/64
[2021-03-22 16:05] VITALS: BP 103/65
[2021-03-22] MEDS: ZOLPIDEM TARTRATE 10 MG TABLET PO PRN (20:37)
[2021-03-23 02:16] VITALS: BP 110/68
[2021-03-23] MEDS: OxyCODONE HCL 5 MG IR TABLET PO PRN ×3 (02:16→14:38)
[2021-03-23] MEDS: LEVOTHYROXINE SODIUM 100 MCG TABLET PO SCH (06:28)
[2021-03-23] MEDS: LISINOPRIL 5 MG TABLET PO SCH (08:17)
[2021-03-23] MEDS: GABAPENTIN 300 MG CAPSULE PO SCH ×3 (08:17→16:35)
[2021-03-23] MEDS: MULTIVITAMINS WITH MINERALS, THERAPEUTIC TABLET PO SCH (08:17)
[2021-03-23] MEDS: METOPROLOL TARTRATE 50 MG TABLET PO SCH (08:17)
[2021-03-23] MEDS: CITALOPRAM HYDROBROMIDE 20 MG TABLET PO SCH (08:18)
[2021-03-23] MEDS: TiZANidine HCL 4 MG TABLET PO SCH ×3 (08:18→16:36)
[2021-03-23] MEDS: PANTOPRAZOLE SODIUM 40 MG DR TABLET PO SCH (08:18)
[2021-03-23 08:20] VITALS: BP 116/67
[2021-03-23 08:53] VITALS: BP 116/67
[2021-03-23 14:38] VITALS: BP 126/68
[2021-03-23 16:00] VITALS: BP 120/81
[2021-03-23] MEDS: ZOLPIDEM TARTRATE 10 MG TABLET PO PRN (20:15)
[2021-03-24 03:30] VITALS: BP 145/80
[2021-03-24] MEDS: OxyCODONE HCL 5 MG IR TABLET PO PRN (03:43)
[2021-03-24] MEDS: LEVOTHYROXINE SODIUM 100 MCG TABLET PO SCH (06:44)
[2021-03-24 07:34] LABS: CALCIUM, TOTAL 8.8 mg/dL (8.8-10.5); CREATININE 1.09 mg/dL (0.60-1.30); MAGNESIUM 2.1 mg/dL (1.80-2.40); PHOSPHORUS 4.3 mg/dL (2.5-4.9); POTASSIUM 4.7 mmol/L (3.5-5.1)
[2021-03-24 07:35] LABS: HEMATOCRIT 34.9 % (36-46); HEMOGLOBIN 11.7 g/dL (12.0-16.0); MEAN CORPUSCULAR HEMOGLOBIN 28.6 pg (26.0-34.0); MEAN CORPUSCULAR HGB CONC 33.4 G/dL (31.0-37.0); MEAN CORPUSCULAR VOLUME 86 fL (80-100); PLATELET COUNT (AUTO) 235 K/uL (150-450); RED BLOOD CELL COUNT(AUTO) 4.08 MIL/uL (4.00-5.20); RED CELL DISTRIBUTION WIDTH 16.2 % (11.5-14.5)
[2021-03-24 08:05] VITALS: BP 160/100
[2021-03-24] MEDS: PANTOPRAZOLE SODIUM 40 MG DR TABLET PO SCH (08:13)
[2021-03-24] MEDS: TiZANidine HCL 4 MG TABLET PO SCH ×2 (08:13→12:26)
[2021-03-24] MEDS: GABAPENTIN 300 MG CAPSULE PO SCH ×2 (08:13→12:26)
[2021-03-24] MEDS: MULTIVITAMINS WITH MINERALS, THERAPEUTIC TABLET PO SCH (08:13)
[2021-03-24] MEDS: CITALOPRAM HYDROBROMIDE 20 MG TABLET PO SCH (08:14)
[2021-03-24] MEDS: METOPROLOL TARTRATE 50 MG TABLET PO SCH (08:14)
[2021-03-24] MEDS: LISINOPRIL 5 MG TABLET PO SCH (08:14)
[2021-03-24 08:28] LABS: BAND NEUTROPHILS % (MANUAL) 3 % (0-5); LYMPHOCYTES % (MANUAL) 15 % (22-44); MONOCYTES % (MANUAL) 4 % (2-9); SEGMENTED NEUTROPHILS % 78 % (40-70)
[2021-03-24 08:29] LABS: PLATELET MORPHOLOGY COMMENT GIANT PLTS PRESENT
[2021-03-24] MEDS ORDERED: CITA-144 PO (12:11)
[2021-03-24] MEDS ORDERED: MULT-1239 PO (12:11)
[2021-03-24] MEDS ORDERED: TIZA-211 PO (12:11)
== END 2021-03-24 15:05 | disposition home or self-care (01) | DRG 881 ==
LOC: 3EX 16:45
PROVIDERS: ADMIT Psychiatry & Neurology Psychiatry; ATTEND Psychiatry & Neurology Psychiatry
DX: F32.9 Major depressive disorder, single episode, unspecified (principal); L03.119 Cellulitis of unspecified part of limb; F41.9 Anxiety disorder, unspecified; F22 Delusional disorders; E87.6 Hypokalemia; G47.00 Insomnia, unspecified; I10 Essential (primary) hypertension; K59.00 Constipation, unspecified; Z20.822 Contact with and (suspected) exposure to COVID-19; Z88.8 Allergy status to other drugs, medicaments and biological substances
CPT/HCPCS: 80048; 80053; 83036; 83735; 84100; 84439; 84443; 84702; 85007; 85027; 87081; 93925; 93970; 97162; 97165; G0378; J1200; J1630; J2060

== ENCOUNTER 2021-05-10 05:56 | Inpatient (IN) | payer MEDICARE ==
[~2021-05-10] VITALS: Ht 170.2 cm; Wt 116.6 kg
[~2021-05-10 05:56] MED LIST changes: +CITA-144 PO; -DULO60CA98 PO; -FERR-89 PO; -MAGN400T7 PO; -MELA3TAB89 PO; -METO5TAB95 PO; -MIRT-89 PO; +MULT-1239 PO; -OLAN5TAB52 PO; -OS500 PO; -POLY17PO47 PO; -SENN-144 PO; +TIZA-211 PO
[2021-05-10] MEDS ORDERED: FAMOTIDINE 10 MG/ML 2 ML VIAL IVP ONE (06:15)
[2021-05-10] MEDS ORDERED: 0.9% SODIUM CHLORIDE 10 ML SYRINGE IVP PRN ×2 (06:15→08:15)
[2021-05-10] MEDS ORDERED: VANCOMYCIN HCL 1 GM/D5% WATER 200 ML IV ONE (06:15)
[2021-05-10] MEDS ORDERED: OxyCODONE HCL 5 MG IR TABLET PO ONE (06:15)
[2021-05-10] MEDS ORDERED: BACITRACIN 0.9 GM PACKET OINTMENT TP ONE (06:30)
[2021-05-10 06:38] LABS: COVID AG,FIA SOURCE NASOPHARYNGEAL
[2021-05-10 06:45] LABS: BASOPHILS % (AUTO) 0.5 % (0.0-2.0); EOSINOPHILS % (AUTO) 2.7 % (1.0-6.0); HEMATOCRIT 38.7 % (36-46); HEMOGLOBIN 12.9 g/dL (12.0-16.0); LYMPHOCYTES # (AUTO) 1.1 K/uL (1.0-4.8); LYMPHOCYTES % (AUTO) 16.2 % (22.0-44.0); MEAN CORPUSCULAR HEMOGLOBIN 28.4 pg (26.0-34.0); MEAN CORPUSCULAR HGB CONC 33.4 G/dL (31.0-37.0); MEAN CORPUSCULAR VOLUME 85 fL (80-100); MONOCYTES # (AUTO) 0.4 K/uL (0.1-1.0); MONOCYTES % (AUTO) 6.4 % (2.0-9.0); NEUTROPHILS % (AUTO) 74.2 % (40.0-70.0); PLATELET COUNT (AUTO) 252 K/uL (150-450); RED BLOOD CELL COUNT(AUTO) 4.56 MIL/uL (4.00-5.20); RED CELL DISTRIBUTION WIDTH 15.8 % (11.5-14.5)
[2021-05-10 06:57] LABS: ANION GAP 5 mmol/L (8-16); CARBON DIOXIDE 31 mmol/L (22-29); CHLORIDE 100 mmol/L (98-107); CREATININE 1.13 mg/dL (0.60-1.30); GLOMERULAR FILTR. RATE CALC 51 mL/min (>60); GLUCOSE,RANDOM 101 mg/dL (70-110); POTASSIUM 3.9 mmol/L (3.5-5.1); SODIUM SERUM 136 mmol/L (136-145); UREA NITROGEN, BLOOD 11 mg/dL (7-18)
[2021-05-10 07:06] LABS: LACTIC ACID 0.6 mmol/L (0.4-2.0)
[2021-05-10 07:07] LABS: ALANINE AMINOTRANSFERASE 30 U/L (12-78); ALBUMIN 3.4 g/dL (3.4-5.0); ALKALINE PHOSPHATASE 111 U/L (46-116); ASPARTATE AMINOTRANSFERASE 18 U/L (15-37); BILIRUBIN,TOTAL 0.3 mg/dL (0.1-1.0); CREATINE KINASE, TOTAL ONLY 112 U/L (26-192); LIPASE 81 U/L (73-393); PHOSPHORUS 3.8 mg/dL (2.5-4.9); TOTAL PROTEIN, SERUM 7.9 g/dL (6.4-8.2)
[2021-05-10 07:09] LABS: B-TYPE NATRIURETIC PEPTIDE 47 pg/mL (0-100)
[2021-05-10] MEDS ORDERED: ONDANSETRON HCL 4 MG/2 ML VIAL IVP PRN (08:15)
[2021-05-10] MEDS ORDERED: ACETAMINOPHEN 325 MG TABLET PO PRN (08:15)
[2021-05-10] MEDS ORDERED: VANCOMYCIN HCL 500 MG in DEXTROSE 5%-WATER 100 ML IV ONE (09:00)
[2021-05-10] MEDS: DOCUSATE SODIUM 100 MG CAPSULE PO SCH ×2 (09:03→20:10)
[2021-05-10] MEDS: LISINOPRIL 10 MG TABLET PO SCH (09:03)
[2021-05-10] MEDS: ASPIRIN 81 MG CHEWABLE TABLET PO SCH (09:03)
[2021-05-10] MEDS: FAMOTIDINE 20 MG TABLET PO SCH (09:04)
[2021-05-10] MEDS: OxyCODONE HCL/ACETAMINOPHEN 5-325 MG TABLET PO PRN ×3 (09:36→20:11)
[2021-05-10 14:14] LABS: APPEARANCE,URINE CLEAR (CLEAR); BILIRUBIN,URINE NEGATIVE (NEGATIVE); GLUCOSE, URINE (UA) NEGATIVE (NEGATIVE); KETONES,URINE NEGATIVE (NEGATIVE); LEUKOCYTE ESTERASE ,URINE NEGATIVE (NEGATIVE); NITRATE,URINE NEGATIVE (NEGATIVE); OCCULT BLOOD,URINE NEGATIVE (NEGATIVE); PROTEIN,URINE NEGATIVE (NEGATIVE); UROBILINOGEN,URINE 0.2 mg/dL (<=1.0)
[2021-05-10] MEDS: HEPARIN SODIUM,PORCINE 5,000 UNITS/ML VIAL SQ SCH (16:09)
[2021-05-10 17:15] VITALS: BP 136/71
[2021-05-10] MEDS ORDERED: SODIUM CHLORIDE 0.9% 500 ML IV ONE (20:19)
[2021-05-10] MEDS: VANCOMYCIN HCL 1 GM/D5% WATER 200 ML IV SCH (20:38)
[2021-05-11] VITALS (8 sets, daily range): BP systolic 115–168; BP diastolic 66–106
[2021-05-11] MEDS: HEPARIN SODIUM,PORCINE 5,000 UNITS/ML VIAL SQ SCH ×4 (00:49→23:20)
[2021-05-11] MEDS: OxyCODONE HCL/ACETAMINOPHEN 5-325 MG TABLET PO PRN ×5 (00:55→20:08)
[2021-05-11 07:30] LABS: BASOPHILS % (AUTO) 0.5 % (0.0-2.0); EOSINOPHILS % (AUTO) 4.8 % (1.0-6.0); HEMATOCRIT 39.8 % (36-46); HEMOGLOBIN 13.1 g/dL (12.0-16.0); LYMPHOCYTES % (AUTO) 15.8 % (22.0-44.0); MEAN CORPUSCULAR HEMOGLOBIN 28.1 pg (26.0-34.0); MEAN CORPUSCULAR HGB CONC 32.9 G/dL (31.0-37.0); MEAN CORPUSCULAR VOLUME 85 fL (80-100); MONOCYTES # (AUTO) 0.4 K/uL (0.1-1.0); MONOCYTES % (AUTO) 6.8 % (2.0-9.0); NEUTROPHILS # (AUTO) 4.5 K/uL (1.8-7.7); NEUTROPHILS % (AUTO) 72.1 % (40.0-70.0); PLATELET COUNT (AUTO) 227 K/uL (150-450); RED BLOOD CELL COUNT(AUTO) 4.67 MIL/uL (4.00-5.20); RED CELL DISTRIBUTION WIDTH 16.1 % (11.5-14.5)
[2021-05-11 08:03] LABS: BILIRUBIN,TOTAL 0.3 mg/dL (0.1-1.0); CALCIUM, TOTAL 8.8 mg/dL (8.8-10.5); CREATININE 1.12 mg/dL (0.60-1.30); TOTAL PROTEIN, SERUM 7.3 g/dL (6.4-8.2)
[2021-05-11] MEDS: DOCUSATE SODIUM 100 MG CAPSULE PO SCH ×2 (08:09→20:08)
[2021-05-11] MEDS: FAMOTIDINE 20 MG TABLET PO SCH (08:09)
[2021-05-11] MEDS: ASPIRIN 81 MG CHEWABLE TABLET PO SCH (08:09)
[2021-05-11] MEDS: LISINOPRIL 10 MG TABLET PO SCH (08:09)
[2021-05-11] MEDS: ACETAMINOPHEN 325 MG TABLET PO PRN ×2 (08:09→11:16)
[2021-05-11] MEDS: VANCOMYCIN HCL 1 GM/D5% WATER 200 ML IV SCH ×2 (08:21→20:09)
[2021-05-11] MEDS: CYCLOBENZAPRINE HCL 10 MG TABLET PO PRN ×2 (08:22→16:26)
[2021-05-11] MEDS: CITALOPRAM HYDROBROMIDE 20 MG TABLET PO SCH (14:08)
[2021-05-11] MEDS: GABAPENTIN 300 MG CAPSULE PO SCH ×2 (16:25→20:08)
[2021-05-12] MEDS: CYCLOBENZAPRINE HCL 10 MG TABLET PO PRN ×2 (00:38→08:53)
[2021-05-12] MEDS: OxyCODONE HCL/ACETAMINOPHEN 5-325 MG TABLET PO PRN ×4 (00:38→14:01)
[2021-05-12 03:45] VITALS: BP 135/84
[2021-05-12] MEDS: ACETAMINOPHEN 325 MG TABLET PO PRN (04:36)
[2021-05-12 06:51] LABS: CREATININE 1.1 mg/dL (0.60-1.30); POTASSIUM 4.5 mmol/L (3.5-5.1); VANCOMYCIN,RANDOM 20.4 mcg/mL (25.0-50.0)
[2021-05-12 08:15] VITALS: BP 123/78
[2021-05-12] MEDS: HEPARIN SODIUM,PORCINE 5,000 UNITS/ML VIAL SQ SCH (08:51)
[2021-05-12] MEDS: DOCUSATE SODIUM 100 MG CAPSULE PO SCH (08:51)
[2021-05-12] MEDS: VANCOMYCIN HCL 1 GM/D5% WATER 200 ML IV SCH (08:51)
[2021-05-12] MEDS: ASPIRIN 81 MG CHEWABLE TABLET PO SCH (08:52)
[2021-05-12] MEDS: LISINOPRIL 10 MG TABLET PO SCH (08:52)
[2021-05-12] MEDS: GABAPENTIN 300 MG CAPSULE PO SCH (08:52)
[2021-05-12] MEDS: CITALOPRAM HYDROBROMIDE 20 MG TABLET PO SCH (08:52)
[2021-05-12] MEDS: FAMOTIDINE 20 MG TABLET PO SCH (08:52)
[2021-05-12] MEDS ORDERED: SULF-261 PO (11:15)
[2021-05-12 12:18] VITALS: BP 123/74
[2021-05-12 15:00] VITALS: BP 133/77
[2021-05-12] MEDS ORDERED: VANCOMYCIN HCL 750 MG in DEXTROSE 5%-WATER 250 ML IV SCH (20:00)
== END 2021-05-12 14:55 | disposition home or self-care (01) | DRG 603 ==
LOC: EMS 05:56 → 6S 08:35
PROVIDERS: ADMIT Internal Medicine; ATTEND Internal Medicine
DX: L03.115 Cellulitis of right lower limb (principal); F33.2 Major depressive disorder, recurrent severe without psychotic features; R45.851 Suicidal ideations; Z68.41 Body mass index [BMI] 40.0-44.9, adult; L03.116 Cellulitis of left lower limb; I10 Essential (primary) hypertension; I87.8 Other specified disorders of veins; E66.9 Obesity, unspecified; G89.29 Other chronic pain; E03.9 Hypothyroidism, unspecified; Z20.822 Contact with and (suspected) exposure to COVID-19; F20.9 Schizophrenia, unspecified; J45.909 Unspecified asthma, uncomplicated; Z82.49 Family history of ischemic heart disease and other diseases of the circulatory system; Z83.3 Family history of diabetes mellitus; Z87.442 Personal history of urinary calculi; Z88.8 Allergy status to other drugs, medicaments and biological substances
CPT/HCPCS: 80048; 80053; 80202; 81003; 82550; 83605; 83690; 83735; 83880; 84100; 84145; 84484; 85025; 87040; 87081; 97116; 99285; J1644; J2405; J3370; J3490; J7040; J7060

== ENCOUNTER 2021-05-16 00:09 | Inpatient (IN) | payer MEDICARE ==
[~2021-05-16] VITALS: Ht 157.5 cm; Wt 114.2 kg
[~2021-05-16 00:09] MED LIST changes: -METO50 PO; +SULF-261 PO; -TIZA-211 PO
[2021-05-16] MEDS ORDERED: HYDROmorphone 2 MG/ML VIAL IVP ONE (00:45)
[2021-05-16] MEDS ORDERED: SODIUM CHLORIDE 0.9% 2,000 ML IV ONE (00:45)
[2021-05-16] MEDS ORDERED: ONDANSETRON HCL 4 MG/2 ML VIAL IVP ONE ×2 (00:45→04:30)
[2021-05-16 01:01] LABS: BASOPHILS % (AUTO) 0.6 % (0.0-2.0); EOSINOPHILS % (AUTO) 2.5 % (1.0-6.0); HEMATOCRIT 39.4 % (36-46); HEMOGLOBIN 13.1 g/dL (12.0-16.0); LYMPHOCYTES # (AUTO) 0.8 K/uL (1.0-4.8); LYMPHOCYTES % (AUTO) 12.2 % (22.0-44.0); MEAN CORPUSCULAR HEMOGLOBIN 28.3 pg (26.0-34.0); MEAN CORPUSCULAR HGB CONC 33.3 G/dL (31.0-37.0); MEAN CORPUSCULAR VOLUME 85 fL (80-100); MONOCYTES # (AUTO) 0.4 K/uL (0.1-1.0); MONOCYTES % (AUTO) 6.2 % (2.0-9.0); NEUTROPHILS % (AUTO) 78.5 % (40.0-70.0); PLATELET COUNT (AUTO) 241 K/uL (150-450); RED BLOOD CELL COUNT(AUTO) 4.65 MIL/uL (4.00-5.20); RED CELL DISTRIBUTION WIDTH 15.7 % (11.5-14.5)
[2021-05-16 01:05] LABS: CALCIUM, TOTAL 9.3 mg/dL (8.8-10.5); CREATININE 1.09 mg/dL (0.60-1.30); POTASSIUM 4.7 mmol/L (3.5-5.1)
[2021-05-16 01:12] LABS: ALBUMIN 3.5 g/dL (3.4-5.0); BILIRUBIN,TOTAL 0.3 mg/dL (0.1-1.0); TOTAL PROTEIN, SERUM 8.2 g/dL (6.4-8.2)
[2021-05-16] MEDS ORDERED: GABAPENTIN 300 MG CAPSULE PO ONE (02:15)
[2021-05-16] MEDS ORDERED: LORazepam 2 MG/ML VIAL IVP ONE (02:15)
[2021-05-16] MEDS ORDERED: ZOLPIDEM TARTRATE 10 MG TABLET PO PRN (05:00)
[2021-05-16] MEDS ORDERED: HALOPERIDOL 5 MG TABLET PO PRN (05:00)
[2021-05-16 05:18] LABS: COVID AG,FIA SOURCE NASAL SWAB
[2021-05-16 15:39] LABS: APPEARANCE,URINE CLEAR (CLEAR); BILIRUBIN,URINE NEGATIVE (NEGATIVE); GLUCOSE, URINE (UA) NEGATIVE (NEGATIVE); KETONES,URINE NEGATIVE (NEGATIVE); LEUKOCYTE ESTERASE ,URINE NEGATIVE (NEGATIVE); NITRATE,URINE NEGATIVE (NEGATIVE); OCCULT BLOOD,URINE NEGATIVE (NEGATIVE); PH,URINE 7.5 (5.0-8.0); PROTEIN,URINE NEGATIVE (NEGATIVE); UROBILINOGEN,URINE 0.2 mg/dL (<=1.0)
[2021-05-16 15:44] LABS: AMPHET/METH SCREEN,URINE NEGATIVE (NEGATIVE); BARBITURATE SCREEN, URINE NEGATIVE (NEGATIVE); BENZODIAZEPINES SCREEN,URINE NEGATIVE (NEGATIVE); CANNABINOID SCREEN,URINE NEGATIVE (NEGATIVE); COCAINE SCREEN,URINE NEGATIVE (NEGATIVE); METHADONE SCREEN, URINE NEGATIVE (NEGATIVE); OPIATE SCREEN,URINE POSITIVE (NEGATIVE)
[2021-05-16 15:49] LABS: PHENCYCLIDINE SCREEN,URINE NEGATIVE (NEGATIVE)
[2021-05-16] MEDS ORDERED: LOPERAMIDE HCL 2 MG CAPSULE PO PRN (16:15)
[2021-05-16] MEDS ORDERED: ONDANSETRON HCL 4 MG TABLET PO PRN (16:15)
[2021-05-16] MEDS ORDERED: NICOTINE 14 MG/24 HOUR PATCH TD PRN (16:15)
[2021-05-16] MEDS ORDERED: MAG HYDROX/AL HYDROX/SIMETH ES 30 ML SUSPENSION UDCUP PO PRN (16:15)
[2021-05-16] MEDS ORDERED: MAGNESIUM HYDROXIDE SUSPENSION 30 ML UDCUP PO PRN (16:15)
[2021-05-16] MEDS ORDERED: DOCUSATE SODIUM 100 MG CAPSULE PO PRN (16:15)
[2021-05-16] MEDS ORDERED: PETROLATUM,WHITE 28 GM JELLY TP PRN (16:15)
[2021-05-16] MEDS ORDERED: GuaiFENesin/D-METHORPHAN [SUGAR-FREE] 200-20MG/10 ML SYRUP UDCUP PO PRN (16:15)
[2021-05-16] MEDS ORDERED: CloNIDine HCL 0.1 MG TABLET PO PRN (16:15)
[2021-05-16] MEDS ORDERED: ALBUTEROL SULFATE HFA 90 MCG/PUFF 8 GM INHALER IH PRN (16:15)
[2021-05-16] MEDS: GABAPENTIN 300 MG CAPSULE PO SCH (20:14)
[2021-05-17 07:25] LABS: CHOL/HDL RATIO 2.7 (3.9-5.7)
[2021-05-17] MEDS: LEVOTHYROXINE SODIUM 100 MCG TABLET PO SCH (07:43)
[2021-05-17] MEDS: GABAPENTIN 300 MG CAPSULE PO SCH ×2 (07:44→15:56)
[2021-05-17] MEDS: PANTOPRAZOLE SODIUM 40 MG DR TABLET PO SCH (07:44)
[2021-05-17] MEDS: LISINOPRIL 5 MG TABLET PO SCH (07:44)
[2021-05-17] MEDS: MULTIVITAMINS WITH MINERALS, THERAPEUTIC TABLET PO SCH (07:44)
[2021-05-17] MEDS ORDERED: OxyCODONE HCL/ACETAMINOPHEN 5-325 MG TABLET PO ONE (07:45)
[2021-05-17] MEDS: ACETAMINOPHEN 325 MG TABLET PO PRN (16:48)
[2021-05-17 18:15] VITALS: BP 167/92
[2021-05-18 05:30] VITALS: BP 141/86
[2021-05-18] MEDS: LEVOTHYROXINE SODIUM 100 MCG TABLET PO SCH (06:24)
[2021-05-18 09:36] VITALS: BP 132/80
[2021-05-18] MEDS: SULFAMETHOX/TRIMETH DS 800-160 MG/TABLET PO SCH ×2 (09:47→17:25)
[2021-05-18] MEDS: MULTIVITAMINS WITH MINERALS, THERAPEUTIC TABLET PO SCH (09:47)
[2021-05-18] MEDS: PANTOPRAZOLE SODIUM 40 MG DR TABLET PO SCH (09:47)
[2021-05-18] MEDS: GABAPENTIN 300 MG CAPSULE PO SCH ×3 (09:47→17:25)
[2021-05-18] MEDS: LISINOPRIL 5 MG TABLET PO SCH (09:47)
[2021-05-18] MEDS: IBUPROFEN 400 MG TABLET PO PRN (10:56)
[2021-05-18] MEDS: CITALOPRAM HYDROBROMIDE 20 MG TABLET PO SCH (11:37)
[2021-05-18] MEDS ORDERED: GABAPENTIN 300 MG CAPSULE PO SCH (13:00)
[2021-05-18 13:42] VITALS: BP 132/80
[2021-05-18 16:28] VITALS: BP 124/75
[2021-05-18] MEDS: HydrOXYzine PAMOATE 50 MG CAPSULE PO PRN (17:25)
[2021-05-19] MEDS: LEVOTHYROXINE SODIUM 100 MCG TABLET PO SCH (06:45)
[2021-05-19] MEDS: GABAPENTIN 300 MG CAPSULE PO SCH ×3 (08:44→16:35)
[2021-05-19] MEDS: CITALOPRAM HYDROBROMIDE 20 MG TABLET PO SCH (08:44)
[2021-05-19] MEDS: PANTOPRAZOLE SODIUM 40 MG DR TABLET PO SCH (08:44)
[2021-05-19] MEDS: SULFAMETHOX/TRIMETH DS 800-160 MG/TABLET PO SCH ×2 (08:44→16:35)
[2021-05-19] MEDS: MULTIVITAMINS WITH MINERALS, THERAPEUTIC TABLET PO SCH (08:44)
[2021-05-19] MEDS: LISINOPRIL 5 MG TABLET PO SCH (08:45)
[2021-05-19 08:47] VITALS: BP 135/69
[2021-05-19] MEDS: IBUPROFEN 400 MG TABLET PO PRN (08:47)
[2021-05-19 12:25] VITALS: BP 129/70
[2021-05-19] MEDS: ACETAMINOPHEN 325 MG TABLET PO PRN (12:25)
[2021-05-19 16:00] VITALS: BP 123/81
[2021-05-19 17:02] VITALS: BP 123/81
[2021-05-20] MEDS: LEVOTHYROXINE SODIUM 100 MCG TABLET PO SCH (07:03)
[2021-05-20 09:09] VITALS: BP 120/83
[2021-05-20 09:50] VITALS: BP 120/83
[2021-05-20] MEDS: LISINOPRIL 5 MG TABLET PO SCH (09:55)
[2021-05-20] MEDS: CITALOPRAM HYDROBROMIDE 20 MG TABLET PO SCH (09:55)
[2021-05-20] MEDS: MULTIVITAMINS WITH MINERALS, THERAPEUTIC TABLET PO SCH (09:55)
[2021-05-20] MEDS: SULFAMETHOX/TRIMETH DS 800-160 MG/TABLET PO SCH (09:55)
[2021-05-20] MEDS: IBUPROFEN 400 MG TABLET PO PRN (09:55)
[2021-05-20] MEDS: PANTOPRAZOLE SODIUM 40 MG DR TABLET PO SCH (09:56)
[2021-05-20] MEDS: GABAPENTIN 300 MG CAPSULE PO SCH ×2 (09:56→13:42)
[2021-05-20] MEDS: HydrOXYzine PAMOATE 50 MG CAPSULE PO PRN (13:41)
[2021-05-20] MEDS: ACETAMINOPHEN 325 MG TABLET PO PRN (13:41)
[2021-05-20] MEDS ORDERED: CITA-144 PO (14:03)
[2021-05-20] MEDS ORDERED: SULF-261 PO ×2 (14:09→15:08)
== END 2021-05-20 16:12 | disposition home or self-care (01) | DRG 885 ==
LOC: EMS 00:12 → 3EI 05-17 05:00
PROVIDERS: ADMIT Psychiatry & Neurology Psychiatry; ATTEND Psychiatry & Neurology Psychiatry
DX: F25.1 Schizoaffective disorder, depressive type (principal); R45.851 Suicidal ideations; F13.20 Sedative, hypnotic or anxiolytic dependence, uncomplicated; I10 Essential (primary) hypertension; I87.2 Venous insufficiency (chronic) (peripheral); J45.909 Unspecified asthma, uncomplicated; K43.9 Ventral hernia without obstruction or gangrene; M19.90 Unspecified osteoarthritis, unspecified site; E86.0 Dehydration; Z20.822 Contact with and (suspected) exposure to COVID-19; E03.9 Hypothyroidism, unspecified; F41.9 Anxiety disorder, unspecified; Z79.899 Other long term (current) drug therapy; Z87.11 Personal history of peptic ulcer disease; Z87.442 Personal history of urinary calculi; Z88.8 Allergy status to other drugs, medicaments and biological substances
CPT/HCPCS: 71045; 74176; 80053; 80061; 81003; 83605; 83690; 84484; 84703; 85025; 87081; 93005; 97162; 99285; G0480; J1170; J2060; J2405; J7030; Q0162; 36415-L1; 36415-TC

== ENCOUNTER 2021-07-22 12:24 | Emergency (ER) | payer MEDICARE, OTHER ==
[~2021-07-22] VITALS: Ht 170.2 cm; Wt 109.1 kg
[2021-07-22 12:31] VITALS: BP 125/65
[2021-07-22 13:38] LABS: BASOPHILS % (AUTO) 0.6 % (0.0-2.0); HEMATOCRIT 35.7 % (36-46); HEMOGLOBIN 11.4 g/dL (12.0-16.0); LYMPHOCYTES # (AUTO) 1.4 K/uL (1.0-4.8); LYMPHOCYTES % (AUTO) 21.6 % (22.0-44.0); MEAN CORPUSCULAR HEMOGLOBIN 26.5 pg (26.0-34.0); MEAN CORPUSCULAR HGB CONC 31.9 G/dL (31.0-37.0); MEAN CORPUSCULAR VOLUME 83 fL (80-100); MONOCYTES # (AUTO) 0.5 K/uL (0.1-1.0); MONOCYTES % (AUTO) 8.1 % (2.0-9.0); NEUTROPHILS # (AUTO) 4.3 K/uL (1.8-7.7); NEUTROPHILS % (AUTO) 65.7 % (40.0-70.0); PLATELET COUNT (AUTO) 265 K/uL (150-450); RED CELL DISTRIBUTION WIDTH 15.6 % (11.5-14.5)
[2021-07-22 13:40] LABS: CALCIUM, TOTAL 8.8 mg/dL (8.8-10.5); CREATININE 0.99 mg/dL (0.60-1.30)
[2021-07-22 13:46] LABS: ALBUMIN 3.1 g/dL (3.4-5.0); BILIRUBIN,TOTAL 0.3 mg/dL (0.1-1.0); TOTAL PROTEIN, SERUM 7.4 g/dL (6.4-8.2)
== END 2021-07-22 14:32 | disposition home or self-care (01) ==
LOC: EMS 12:29
DX: D64.9 Anemia, unspecified (principal); F41.9 Anxiety disorder, unspecified; J45.909 Unspecified asthma, uncomplicated; F32.A Depression, unspecified; E03.9 Hypothyroidism, unspecified; F20.9 Schizophrenia, unspecified; Z87.442 Personal history of urinary calculi; Z87.19 Personal history of other diseases of the digestive system; Z86.16 Personal history of COVID-19; Z98.890 Other specified postprocedural states; Z88.8 Allergy status to other drugs, medicaments and biological substances
CPT/HCPCS: 71045; 80053; 85025; 93005; 99285; 36415-L1; 36415-TC

== ENCOUNTER 2021-07-24 07:10 | Inpatient (IN) | payer MEDICARE, MEDICAID ==
[~2021-07-24] VITALS: Ht 162.6 cm; Wt 98.2 kg
[2021-07-24] MEDS ORDERED: ACTIVATED CHARCOAL 50 GM/240 ML SUSPENSION PO ONE (07:30)
[2021-07-24] MEDS ORDERED: MIDAZOLAM HCL 2 MG/2 ML VIAL IM ONE (08:15)
[2021-07-24] MEDS ORDERED: HALOPERIDOL LACTATE 5 MG/ML VIAL IM ONE ×2 (08:15→13:30)
[2021-07-24 08:51] LABS: COVID AG,FIA SOURCE NASOPHARYNGEAL
[2021-07-24 09:19] LABS: BASOPHILS % (AUTO) 0.3 % (0.0-2.0); EOSINOPHILS % (AUTO) 2.3 % (1.0-6.0); HEMATOCRIT 37.4 % (36-46); HEMOGLOBIN 12.1 g/dL (12.0-16.0); LYMPHOCYTES # (AUTO) 0.9 K/uL (1.0-4.8); LYMPHOCYTES % (AUTO) 14.9 % (22.0-44.0); MEAN CORPUSCULAR HEMOGLOBIN 26.9 pg (26.0-34.0); MEAN CORPUSCULAR HGB CONC 32.4 G/dL (31.0-37.0); MEAN CORPUSCULAR VOLUME 83 fL (80-100); MONOCYTES # (AUTO) 0.3 K/uL (0.1-1.0); MONOCYTES % (AUTO) 4.7 % (2.0-9.0); NEUTROPHILS # (AUTO) 4.5 K/uL (1.8-7.7); NEUTROPHILS % (AUTO) 77.8 % (40.0-70.0); PLATELET COUNT (AUTO) 241 K/uL (150-450); RED CELL DISTRIBUTION WIDTH 15.2 % (11.5-14.5)
[2021-07-24 09:31] LABS: ANION GAP 4 mmol/L (8-16); CARBON DIOXIDE 29 mmol/L (22-29); CHLORIDE 105 mmol/L (98-107); CREATININE 0.93 mg/dL (0.60-1.30); GLOMERULAR FILTR. RATE CALC > 60 mL/min (>60); GLUCOSE,RANDOM 98 mg/dL (70-110); POTASSIUM 4.9 mmol/L (3.5-5.1); SODIUM SERUM 138 mmol/L (136-145); UREA NITROGEN, BLOOD 10 mg/dL (7-18)
[2021-07-24 09:45] LABS: ALANINE AMINOTRANSFERASE 30 U/L (12-78); ALBUMIN 3.2 g/dL (3.4-5.0); ALKALINE PHOSPHATASE 106 U/L (46-116); ASPARTATE AMINOTRANSFERASE 29 U/L (15-37); BILIRUBIN,TOTAL 0.2 mg/dL (0.1-1.0); TOTAL PROTEIN, SERUM 7.8 g/dL (6.4-8.2)
[2021-07-24 09:50] LABS: SALICYLATE < 2.8 mg/dL (2.8-20.0)
[2021-07-24 10:10] LABS: ACETAMINOPHEN < 2 mcg/mL (10-30)
[2021-07-24 10:51] LABS: FREE T4 (FREE THYROXINE) 1.41 ng/dL (0.76-1.46)
[2021-07-24 11:19] LABS: AMPHET/METH SCREEN,URINE NEGATIVE (NEGATIVE); BARBITURATE SCREEN, URINE NEGATIVE (NEGATIVE); BENZODIAZEPINES SCREEN,URINE POSITIVE (NEGATIVE); CANNABINOID SCREEN,URINE NEGATIVE (NEGATIVE); COCAINE SCREEN,URINE NEGATIVE (NEGATIVE); METHADONE SCREEN, URINE NEGATIVE (NEGATIVE); OPIATE SCREEN,URINE POSITIVE (NEGATIVE)
[2021-07-24 11:24] LABS: PHENCYCLIDINE SCREEN,URINE NEGATIVE (NEGATIVE)
[2021-07-24] MEDS ORDERED: LORazepam 2 MG/ML VIAL IM ONE (13:30)
[2021-07-24 15:06] LABS: ALANINE AMINOTRANSFERASE 28 U/L (12-78); ALKALINE PHOSPHATASE 101 U/L (46-116); ASPARTATE AMINOTRANSFERASE 25 U/L (15-37); BILIRUBIN,TOTAL 0.2 mg/dL (0.1-1.0); TOTAL PROTEIN, SERUM 7.7 g/dL (6.4-8.2)
[2021-07-24 15:19] LABS: ACETAMINOPHEN < 2 mcg/mL (10-30)
[2021-07-24] MEDS ORDERED: ZOLPIDEM TARTRATE 10 MG TABLET PO PRN (18:00)
[2021-07-24 19:24] VITALS: BP 148/75
[2021-07-24] MEDS: IBUPROFEN 600 MG TABLET PO PRN (19:41)
[2021-07-24] MEDS: GABAPENTIN 300 MG CAPSULE PO SCH (19:41)
[2021-07-24] MEDS ORDERED: PNEUMOCOCCAL VACCINE POLYVALENT 0.5 ML VIAL [PPSV23] IM. ONE (19:45)
[2021-07-24 21:40] VITALS: BP 132/82
[2021-07-24 21:55] VITALS: BP 138/81
[2021-07-24 22:10] VITALS: BP 136/76
[2021-07-24 22:40] VITALS: BP 129/74
[2021-07-25] VITALS (8 sets, daily range): BP systolic 136–155; BP diastolic 78–92
[2021-07-25] MEDS: LEVOTHYROXINE SODIUM 100 MCG TABLET PO SCH (06:36)
[2021-07-25] MEDS: IBUPROFEN 600 MG TABLET PO PRN ×4 (07:03→18:15)
[2021-07-25] MEDS ORDERED: MAGNESIUM HYDROXIDE SUSPENSION 30 ML UDCUP PO PRN (08:45)
[2021-07-25] MEDS ORDERED: LOPERAMIDE HCL 2 MG CAPSULE PO PRN (08:45)
[2021-07-25] MEDS ORDERED: BENZOCAINE/MENTHOL LOZENGE PO PRN (08:45)
[2021-07-25] MEDS ORDERED: OMEPRAZOLE 20 MG CAPSULE PO PRN (08:45)
[2021-07-25] MEDS ORDERED: ONDANSETRON HCL 4 MG TABLET PO PRN (08:45)
[2021-07-25] MEDS ORDERED: CloNIDine HCL 0.1 MG TABLET PO PRN (08:45)
[2021-07-25] MEDS: HALOPERIDOL 5 MG TABLET PO PRN (08:45)
[2021-07-25] MEDS ORDERED: PETROLATUM,WHITE 28 GM JELLY TP PRN (08:45)
[2021-07-25] MEDS ORDERED: MAG HYDROX/AL HYDROX/SIMETH ES 30 ML SUSPENSION UDCUP PO PRN (08:45)
[2021-07-25] MEDS ORDERED: BACITRACIN 28 GM OINTMENT TP PRN (08:45)
[2021-07-25] MEDS: LORazepam 2 MG TABLET PO PRN (08:45)
[2021-07-25] MEDS: LISINOPRIL 5 MG TABLET PO SCH (08:45)
[2021-07-25] MEDS ORDERED: ALBUTEROL SULFATE HFA 90 MCG/PUFF 8 GM INHALER IH PRN (08:45)
[2021-07-25] MEDS ORDERED: DOCUSATE SODIUM 100 MG CAPSULE PO PRN (08:45)
[2021-07-25] MEDS: GABAPENTIN 300 MG CAPSULE PO SCH ×4 (08:45→18:15)
[2021-07-25] MEDS: PANTOPRAZOLE SODIUM 40 MG DR TABLET PO SCH (08:47)
[2021-07-26 05:19] VITALS: BP 152/89
[2021-07-26] MEDS: IBUPROFEN 600 MG TABLET PO PRN ×3 (05:19→19:07)
[2021-07-26] MEDS: LORazepam 2 MG TABLET PO PRN ×2 (05:19→16:31)
[2021-07-26] MEDS: LEVOTHYROXINE SODIUM 100 MCG TABLET PO SCH (06:20)
[2021-07-26] MEDS: HALOPERIDOL 5 MG TABLET PO PRN (06:22)
[2021-07-26] MEDS: GABAPENTIN 300 MG CAPSULE PO SCH ×3 (09:00→16:31)
[2021-07-26] MEDS: CITALOPRAM HYDROBROMIDE 20 MG TABLET PO SCH (09:00)
[2021-07-26] MEDS: LISINOPRIL 5 MG TABLET PO SCH (09:00)
[2021-07-26] MEDS: PANTOPRAZOLE SODIUM 40 MG DR TABLET PO SCH (09:00)
[2021-07-26 16:05] VITALS: BP 130/90
[2021-07-26 16:31] VITALS: BP 130/90
[2021-07-26] MEDS: ACETAMINOPHEN 325 MG TABLET PO PRN (16:31)
[2021-07-26 19:07] VITALS: BP 136/71
[2021-07-27] MEDS: IBUPROFEN 600 MG TABLET PO PRN ×3 (00:53→16:00)
[2021-07-27] MEDS: LORazepam 2 MG TABLET PO PRN ×3 (00:53→16:48)
[2021-07-27] MEDS: HALOPERIDOL 5 MG TABLET PO PRN ×3 (01:30→16:48)
[2021-07-27] MEDS: LEVOTHYROXINE SODIUM 100 MCG TABLET PO SCH (07:09)
[2021-07-27 08:03] VITALS: BP 160/90
[2021-07-27] MEDS: CITALOPRAM HYDROBROMIDE 20 MG TABLET PO SCH (08:18)
[2021-07-27] MEDS: GABAPENTIN 300 MG CAPSULE PO SCH ×3 (08:18→16:48)
[2021-07-27] MEDS: LISINOPRIL 5 MG TABLET PO SCH (08:19)
[2021-07-27] MEDS: PANTOPRAZOLE SODIUM 40 MG DR TABLET PO SCH (08:19)
[2021-07-27] MEDS: ACETAMINOPHEN 325 MG TABLET PO PRN (08:21)
[2021-07-27 12:29] VITALS: BP 160/90
[2021-07-27 16:03] VITALS: BP 135/88
[2021-07-28 02:00] VITALS: BP 128/85
[2021-07-28] MEDS: LORazepam 2 MG TABLET PO PRN ×4 (02:02→18:30)
[2021-07-28] MEDS: IBUPROFEN 600 MG TABLET PO PRN ×2 (02:04→09:37)
[2021-07-28] MEDS: LEVOTHYROXINE SODIUM 100 MCG TABLET PO SCH (06:47)
[2021-07-28] MEDS: HALOPERIDOL 5 MG TABLET PO PRN ×3 (07:25→18:30)
[2021-07-28] MEDS: PANTOPRAZOLE SODIUM 40 MG DR TABLET PO SCH (07:25)
[2021-07-28] MEDS: LISINOPRIL 5 MG TABLET PO SCH (07:25)
[2021-07-28] MEDS: ACETAMINOPHEN 325 MG TABLET PO PRN ×2 (07:25→13:56)
[2021-07-28] MEDS: CITALOPRAM HYDROBROMIDE 20 MG TABLET PO SCH (07:25)
[2021-07-28] MEDS: GABAPENTIN 300 MG CAPSULE PO SCH ×3 (07:25→16:59)
[2021-07-28 08:04] VITALS: BP 147/88
[2021-07-29] MEDS: LORazepam 2 MG TABLET PO PRN ×3 (05:45→17:13)
[2021-07-29] MEDS: HALOPERIDOL 5 MG TABLET PO PRN ×3 (05:45→16:47)
[2021-07-29] MEDS: LEVOTHYROXINE SODIUM 100 MCG TABLET PO SCH (06:22)
[2021-07-29] MEDS: LISINOPRIL 5 MG TABLET PO SCH (08:22)
[2021-07-29] MEDS: GABAPENTIN 300 MG CAPSULE PO SCH ×3 (08:22→16:44)
[2021-07-29] MEDS: PANTOPRAZOLE SODIUM 40 MG DR TABLET PO SCH (08:22)
[2021-07-29] MEDS: CITALOPRAM HYDROBROMIDE 20 MG TABLET PO SCH (08:23)
[2021-07-29 08:39] VITALS: BP 162/103
[2021-07-30 01:52] VITALS: BP 147/90
[2021-07-30] MEDS: IBUPROFEN 600 MG TABLET PO PRN (01:57)
[2021-07-30] MEDS: LORazepam 2 MG TABLET PO PRN ×2 (02:06→06:50)
[2021-07-30] MEDS: HALOPERIDOL 5 MG TABLET PO PRN ×2 (02:06→06:49)
[2021-07-30] MEDS: LEVOTHYROXINE SODIUM 100 MCG TABLET PO SCH (06:33)
[2021-07-30] MEDS: PANTOPRAZOLE SODIUM 40 MG DR TABLET PO SCH (08:33)
[2021-07-30] MEDS: SULFAMETHOX/TRIMETH DS 800-160 MG/TABLET PO SCH ×2 (08:33→17:18)
[2021-07-30] MEDS: CITALOPRAM HYDROBROMIDE 20 MG TABLET PO SCH (08:33)
[2021-07-30] MEDS: GABAPENTIN 300 MG CAPSULE PO SCH ×3 (08:33→17:18)
[2021-07-30] MEDS: LISINOPRIL 5 MG TABLET PO SCH (08:33)
[2021-07-30 08:50] LABS: COVID AG,FIA SOURCE NASAL SWAB
[2021-07-30] MEDS ORDERED: CITA-144 PO ×2 (15:48→17:14)
[2021-07-30] MEDS ORDERED: GABA-1181 PO (15:49)
[2021-07-30] MEDS ORDERED: LEVO100 PO (15:50)
[2021-07-30] MEDS ORDERED: LISI-892 PO (15:51)
[2021-07-30] MEDS ORDERED: SULF1TAB42 PO (15:52)
[2021-07-30 16:17] VITALS: BP 130/82
== END 2021-07-30 17:30 | disposition home or self-care (01) | DRG 885 ==
LOC: EMS 07:37 → 3EC 19:20
PROVIDERS: ADMIT Psychiatry & Neurology Psychiatry; ATTEND Psychiatry & Neurology Psychiatry
DX: F25.9 Schizoaffective disorder, unspecified (principal); Z20.822 Contact with and (suspected) exposure to COVID-19; E03.9 Hypothyroidism, unspecified; F41.9 Anxiety disorder, unspecified; G47.00 Insomnia, unspecified; G89.29 Other chronic pain; I10 Essential (primary) hypertension; J45.909 Unspecified asthma, uncomplicated; K21.9 Gastro-esophageal reflux disease without esophagitis; K59.00 Constipation, unspecified; Z87.442 Personal history of urinary calculi; Z91.51 Personal history of suicidal behavior; Z87.11 Personal history of peptic ulcer disease; Z88.8 Allergy status to other drugs, medicaments and biological substances
CPT/HCPCS: 80053; 82248; 84439; 84443; 85025; 93005; 99285; G0480; G0481; J1630; J2060; J2250

== ENCOUNTER 2021-11-02 11:47 | Inpatient (IN) | payer MEDICARE, MEDICAID ==
[~2021-11-02] VITALS: Ht 160 cm; Wt 68.2 kg
[~2021-11-02 11:47] MED LIST changes: +GABA-1181 PO; -GABA600T10 PO; -PANT-31 PO; -SULF-261 PO; +SULF1TAB42 PO
[2021-11-02] MEDS ORDERED: HALOPERIDOL LACTATE 5 MG/ML VIAL IM ONE (12:00)
[2021-11-02] MEDS ORDERED: DiphenhydrAMINE HCL 50 MG/ML VIAL IM ONE (12:00)
[2021-11-02] MEDS ORDERED: DIAZEPAM 5 MG/ML 2 ML SYRINGE IM ONE (12:00)
[2021-11-02 12:20] LABS: COVID AG,FIA SOURCE NASOPHARYNGEAL
[2021-11-02] MEDS ORDERED: KETAMINE HCL 50 MG/ML 10 ML VIAL IM ONE (13:15)
[2021-11-02 13:56] LABS: BASOPHILS % (AUTO) 0.4 % (0.0-2.0); EOSINOPHILS % (AUTO) 0.1 % (1.0-6.0); HEMATOCRIT 43.4 % (36-46); LYMPHOCYTES # (AUTO) 0.9 K/uL (1.0-4.8); LYMPHOCYTES % (AUTO) 7.7 % (22.0-44.0); MEAN CORPUSCULAR HEMOGLOBIN 26.2 pg (26.0-34.0); MEAN CORPUSCULAR HGB CONC 32.3 G/dL (31.0-37.0); MEAN CORPUSCULAR VOLUME 81 fL (80-100); MONOCYTES # (AUTO) 0.4 K/uL (0.1-1.0); MONOCYTES % (AUTO) 3.1 % (2.0-9.0); NEUTROPHILS # (AUTO) 10.4 K/uL (1.8-7.7); PLATELET COUNT (AUTO) 383 K/uL (150-450); RED BLOOD CELL COUNT(AUTO) 5.35 MIL/uL (4.00-5.20); RED CELL DISTRIBUTION WIDTH 18.2 % (11.5-14.5)
[2021-11-02 13:57] LABS: NEUTROPHILS % (AUTO) 88.7 % (40.0-70.0)
[2021-11-02 14:09] LABS: ACETAMINOPHEN < 2 mcg/mL (10-30)
[2021-11-02 14:21] LABS: SALICYLATE 0.8 mg/dL (2.8-20.0)
[2021-11-02 14:28] LABS: ANION GAP 13 mmol/L (8-16); CALCIUM, TOTAL 9.9 mg/dL (8.8-10.5); CARBON DIOXIDE 23 mmol/L (22-29); CHLORIDE 101 mmol/L (98-107); CREATININE 1.17 mg/dL (0.60-1.30); GLOMERULAR FILTR. RATE CALC 49 mL/min (>60); GLUCOSE,RANDOM 123 mg/dL (70-110); POTASSIUM 3.4 mmol/L (3.5-5.1); SODIUM SERUM 137 mmol/L (136-145); UREA NITROGEN, BLOOD 10 mg/dL (7-18)
[2021-11-02 14:29] LABS: ALANINE AMINOTRANSFERASE 25 U/L (12-78); ALBUMIN 3.5 g/dL (3.4-5.0); ALKALINE PHOSPHATASE 135 U/L (46-116); ASPARTATE AMINOTRANSFERASE 20 U/L (15-37); BILIRUBIN,TOTAL 0.3 mg/dL (0.1-1.0); TOTAL PROTEIN, SERUM 8.9 g/dL (6.4-8.2)
[2021-11-02] MEDS ORDERED: LORazepam 2 MG/ML VIAL IM ONE (15:00)
[2021-11-02] MEDS: LORazepam 2 MG TABLET PO PRN ×2 (15:52→22:35)
[2021-11-02] MEDS: ZOLPIDEM TARTRATE 10 MG TABLET PO PRN ×2 (19:13→22:13)
[2021-11-02 22:50] VITALS: BP 150/91
[2021-11-02] MEDS ORDERED: PNEUMOCOCCAL VACCINE POLYVALENT 0.5 ML VIAL [PPSV23] IM. ONE (23:45)
[2021-11-03] MEDS ORDERED: LOPERAMIDE HCL 2 MG CAPSULE PO PRN (06:30)
[2021-11-03] MEDS ORDERED: MAGNESIUM HYDROXIDE SUSPENSION 30 ML UDCUP PO PRN (06:30)
[2021-11-03] MEDS ORDERED: PETROLATUM,WHITE 28 GM JELLY TP PRN (06:30)
[2021-11-03] MEDS ORDERED: ONDANSETRON HCL 4 MG TABLET PO PRN (06:30)
[2021-11-03] MEDS ORDERED: CloNIDine HCL 0.1 MG TABLET PO PRN (06:30)
[2021-11-03] MEDS ORDERED: MAG HYDROX/AL HYDROX/SIMETH ES 30 ML SUSPENSION UDCUP PO PRN (06:30)
[2021-11-03] MEDS ORDERED: DOCUSATE SODIUM 100 MG CAPSULE PO PRN (06:30)
[2021-11-03] MEDS ORDERED: NICOTINE 14 MG/24 HOUR PATCH TD PRN (06:30)
[2021-11-03] MEDS ORDERED: ACETAMINOPHEN 325 MG TABLET PO PRN (06:30)
[2021-11-03] MEDS ORDERED: ALBUTEROL SULFATE HFA 90 MCG/PUFF 8 GM INHALER IH PRN (06:30)
[2021-11-03] MEDS ORDERED: GuaiFENesin/D-METHORPHAN [SUGAR-FREE] 200-20MG/10 ML SYRUP UDCUP PO PRN (06:30)
[2021-11-03] MEDS: LEVOTHYROXINE SODIUM 100 MCG TABLET PO SCH (06:59)
[2021-11-03] MEDS: IBUPROFEN 400 MG TABLET PO PRN (06:59)
[2021-11-03 08:21] VITALS: BP 132/74
[2021-11-03] MEDS: LISINOPRIL 5 MG TABLET PO SCH (08:22)
[2021-11-03] MEDS: LORazepam 2 MG TABLET PO PRN (08:22)
[2021-11-03 09:00] VITALS: BP 132/74
[2021-11-03 16:45] VITALS: BP 118/73
[2021-11-03] MEDS: IBUPROFEN 600 MG TABLET PO PRN (20:49)
[2021-11-03] MEDS: ZOLPIDEM TARTRATE 10 MG TABLET PO PRN (20:51)
[2021-11-04] MEDS: LEVOTHYROXINE SODIUM 100 MCG TABLET PO SCH (05:47)
[2021-11-04] MEDS: HALOPERIDOL 5 MG TABLET PO PRN ×2 (07:36→14:30)
[2021-11-04] MEDS: LORazepam 2 MG TABLET PO PRN ×2 (07:37→14:30)
[2021-11-04] MEDS: LISINOPRIL 5 MG TABLET PO SCH (08:50)
[2021-11-04 16:15] VITALS: BP 125/77
[2021-11-04] MEDS: IBUPROFEN 600 MG TABLET PO PRN (16:16)
[2021-11-04] MEDS: ZOLPIDEM TARTRATE 10 MG TABLET PO PRN (21:26)
[2021-11-05] MEDS: IBUPROFEN 600 MG TABLET PO PRN ×2 (03:25→16:42)
[2021-11-05] MEDS: LORazepam 2 MG TABLET PO PRN ×2 (04:12→09:39)
[2021-11-05] MEDS: LEVOTHYROXINE SODIUM 100 MCG TABLET PO SCH ×2 (06:30→06:32)
[2021-11-05] MEDS: LISINOPRIL 5 MG TABLET PO SCH (09:38)
[2021-11-05] MEDS: CITALOPRAM HYDROBROMIDE 20 MG TABLET PO SCH (09:39)
[2021-11-05 16:40] VITALS: BP 129/77
[2021-11-05] MEDS ORDERED: METHYL SALICYLATE/MENTHOL 85 GM CREAM TP PRN (19:45)
[2021-11-05] MEDS: ZOLPIDEM TARTRATE 10 MG TABLET PO PRN (20:36)
[2021-11-05 20:56] VITALS: BP 123/73
[2021-11-06] MEDS: IBUPROFEN 600 MG TABLET PO PRN ×3 (00:47→20:22)
[2021-11-06] MEDS: LORazepam 2 MG TABLET PO PRN ×3 (00:47→16:27)
[2021-11-06] MEDS: LEVOTHYROXINE SODIUM 100 MCG TABLET PO SCH (06:30)
[2021-11-06 08:13] VITALS: BP 135/95
[2021-11-06] MEDS: LISINOPRIL 5 MG TABLET PO SCH (09:15)
[2021-11-06] MEDS: CITALOPRAM HYDROBROMIDE 20 MG TABLET PO SCH (09:15)
[2021-11-06] MEDS: IBUPROFEN 400 MG TABLET PO PRN (09:32)
[2021-11-06] MEDS: HALOPERIDOL 5 MG TABLET PO PRN ×2 (11:35→16:26)
[2021-11-06 20:17] VITALS: BP 132/71
[2021-11-07] MEDS: LORazepam 2 MG TABLET PO PRN ×2 (00:16→08:40)
[2021-11-07] MEDS: ZOLPIDEM TARTRATE 10 MG TABLET PO PRN (00:16)
[2021-11-07] MEDS: LEVOTHYROXINE SODIUM 100 MCG TABLET PO SCH (06:26)
[2021-11-07] MEDS: LISINOPRIL 5 MG TABLET PO SCH (08:39)
[2021-11-07] MEDS: IBUPROFEN 400 MG TABLET PO PRN (08:39)
[2021-11-07] MEDS: CITALOPRAM HYDROBROMIDE 20 MG TABLET PO SCH (08:39)
[2021-11-07] MEDS ORDERED: LEVO100 PO (08:56)
[2021-11-07] MEDS ORDERED: LISI-892 PO (08:56)
[2021-11-07] MEDS ORDERED: CITA-144 PO (08:56)
[2021-11-07 09:16] VITALS: BP 136/74
== END 2021-11-07 14:14 | disposition home or self-care (01) | DRG 885 ==
LOC: EMS 11:47 → B3A 17:08
PROVIDERS: ADMIT Psychiatry & Neurology Child & Adolescent Psychiatry; ATTEND Psychiatry & Neurology Child & Adolescent Psychiatry
DX: F25.0 Schizoaffective disorder, bipolar type (principal); F33.9 Major depressive disorder, recurrent, unspecified; I10 Essential (primary) hypertension; I87.2 Venous insufficiency (chronic) (peripheral); J45.909 Unspecified asthma, uncomplicated; D72.829 Elevated white blood cell count, unspecified; E03.9 Hypothyroidism, unspecified; E87.6 Hypokalemia; F41.9 Anxiety disorder, unspecified; M19.90 Unspecified osteoarthritis, unspecified site; Z20.822 Contact with and (suspected) exposure to COVID-19; T50.902A Poisoning by unspecified drugs, medicaments and biological substances, intentional self-harm, initial encounter; Y92.89 Other specified places as the place of occurrence of the external cause; Z87.442 Personal history of urinary calculi; Z88.8 Allergy status to other drugs, medicaments and biological substances; Z79.899 Other long term (current) drug therapy
CPT/HCPCS: 80053; 85025; 99291; G0480; G0481; J1200; J1630; J2060; J3490